=== PATIENT | male | born 1965 | race Caucasian/White ===

== ENCOUNTER → 2024-08-10 16:02 | Outpatient (REF) | payer OTHER, SELFPAY | LOC: RAD 16:02 | PROVIDERS: ATTENDING PHYSICIAN Family Medicine | DX: R91.8 Other nonspecific abnormal finding of lung field (principal) | CPT/HCPCS: 71270; Q9967 ==

== ENCOUNTER → 2024-09-06 10:03 | Outpatient (REF) | payer OTHER, SELFPAY | LOC: PET 10:03 | PROVIDERS: ATTENDING PHYSICIAN Family Medicine | DX: R91.1 Solitary pulmonary nodule (principal); R93.89 Abnormal findings on diagnostic imaging of other specified body structures | CPT/HCPCS: 78815; A9552 ==

== ENCOUNTER 2024-10-09 05:24 | Inpatient (IN) | payer OTHER, SELFPAY ==
[2024-10-08 22:14] VITALS: BP 121/86
[2024-10-08 22:31] LABS: % Basophils 0.8 % (0-2); % Eosinophils 3.1 % (0-6); % Immature Granulocytes 0.5 % (0-0.5); % Lymphocytes 17.2 % (20.5-51.1); % Monocytes 11.7 % (1.7-9.3); % Neutrophils 66.7 % (42.2-75.2); Absolute Basophils 0.1 10^3/uL (0-0.2); Absolute Eosinophils 0.3 10^3/uL (0-0.7); Absolute Lymphocytes 1.5 10^3/uL (1.2-3.4); Absolute Neutrophils 5.8 10^3/uL (1.4-6.5); Hematocrit 55.1 % (39.0-52.0); Mean Corp Hgb Conc. 34.5 g/dL (33.0-37.0); Mean Corpuscular Hgb 33.6 pg (27.0-31.0); Mean Corpuscular Volume 97.5 fL (80.0-94.0); Mean Platelet Volume 11.3 fL (7.4-10.4); Nucleated Red Blood Cells % 0.2 % (-); Platelet Count 177 10^3/uL (130-400); Red Blood Cell Count 5.65 10^6/uL (4.70-6.10); Red Cell Dist. Width 13.7 % (11.5-14.5); White Blood Cell Count 8.6 10^3/uL (4.8-10.8)
[2024-10-08 22:41] LABS: INR 1.25
[2024-10-08 22:45] LABS: ALT (SGPT) 105 U/L (0-50); AST (SGOT) 91 U/L (17-59); Albumin 3.8 g/dl (3.5-5.0); Alkaline Phosphatase 75 U/L (38-126); Blood Urea Nitrogen 34 mg/dl (9-20); Calcium 10.1 mg/dl (8.4-10.2); Carbon Dioxide 26 mmol/L (22-30); Chloride 102 mmol/L (98-107); Glucose 100 mg/dl (70-99); Potassium 4.8 mmol/L (3.5-5.1); Sodium 135 mmol/L (135-145); Total Bilirubin 1.7 mg/dl (0.2-1.3); Total Protein 5.8 g/dl (6.3-8.2); eGFR 49.94
[2024-10-08 22:57] LABS: NT-proBNP 3150 pg/ml; Troponin I < 0.012 ng/ml
[2024-10-08 23:19] VITALS: BP 112/81
[2024-10-08 23:52] VITALS: BMI 27.9
--- NOTE | 2024-10-08 23:58 | ED.GENMED ---
History of Present Illness
General
Chief Complaint: Breathing Problem
Source: patient
Exam Limitations: none
Time Seen by Provider: 10/08/24 23:44
Nursing documentation reviewed up to this point in time: agreed with except (Patient denies palpitations. No chest pain.)
History of Present Illness
History of Present Illness:
This is a 59-year-old gentleman with prior history of A-fib status post A-fib ablation July 2019.
He presents with 1 week history of progressive shortness of breath accompanied with generalized fatigue, has had diarrhea, generally 3-4 loose stools per day over the past week. He complains of abdominal bloating, early satiety, intermittent nausea
without vomiting. He denies fever nor chills, no cough, no chest pain or palpitations, no dizziness nor lightheadedness.
Due to fatigue, abdominal bloating, dyspnea on exertion who presented to urgent care and was sent to the ED for further evaluation.
No history of similar episodes in the past. No recent travel or recent antibiotic use.
No close contacts with similar symptoms.
No leg pain or swelling.
He states he did suffer pneumonia in June. He had CT of his chest in July that showed an upper lobe pulmonary nodule for which he underwent PET scan September 08 showing no FDG uptake as well as resolution of left upper lobe pulmonary nodule.
Mild uptake of nonenlarged mediastinal and hilar lymph nodes presumably inflammatory/reactive.
Past History
Past History
ED Past Medical History: Arrthythmia (Paroxysmal atrial fibrillation. A-fib ablation July 2019); Negative Asthma, HTN, Hypercholesterolemia or NIDDM
ED Past Surgical History: Cardiac (A-fib ablation July 2019) and Orthopedic
Social History
Tobacco: Non-smoker
Alcohol: Occasional
Personal:
Living: alone
Employment: Employed
Phy Exam
Physical Exam
Physical Exam:
GENERAL: 59-year-old gentleman appears his stated age, awake and alert, pleasant, appears in no acute distress.
EYE: pupils equal and reactive. anicteric
NECK: Supple, nontender, no meningismus, no significant adenopathy.
ENT: posterior pharynx is clear, oral mucosa is mildly dry. No rhinorrhea.
CARDIAC: Regular rate and rhythm. no murmur.
LUNGS: Clear breath sounds bilaterally, no acute respiratory distress, no wheezes/rales/rhonchi
ABDOMEN: Rotund, soft, nondistended, minimal generalized tenderness to the upper abdomen, no r/g, no cvat. normoactive BS.
NEUROLOGICAL: Alert and oriented x3, no focal neuro deficits. Gait is steady.
SKIN: Warm and dry, normal color, skin intact. No rash.
MUSCULOSKELETAL: No C/C/E. peripheral pulses are full and equal b/l. No palpable tenderness.
PSYCH: Normal and appropriate interaction.
Scores
Heart Failure Risk
Heart Failure Risk Score: Yes
History of Stroke or TIA: No
History of intubation for respiratory distress: No
Heart rate on ED arrival >/= 110: Yes
SaO2 <90% on arrival on room air: No
HR >/=110 during 3min walk test (or too ill to perform test): Yes
ECG has acute ischemic changes: No
Urea >/=12mmol/L (BUN 33.6mg/dL): Yes
Serum CO2>/=35mmol/L: No
Troponin I or T elevated to [place] Level (0.4mg/dL): No
NT-proBNP >/=5,000ng/L (5,000pg/ml): No
HF Risk Score: 3
Admission Status: HIGH RISK 15.9% Consider SNF treatment or admission to hospital
Course
Orders/Labs/Results
Orders:
Orders
10/08/24 22:08
EKG [Electrocardiogram (*1)] Urgent
Reason for Study: Shortness of Breath
EKG- Treatment ONCE
CR Chest - 2 Views Urgent
Comment:
Reason For Exam: SOB
10/08/24 22:25
Complete Blood Count/With Diff Urgent
Comprehensive Metabolic Panel Urgent
NT-proBNP Urgent
Prothrombin Time Urgent
TSH Reflex To Free T4 Urgent
Comment: ADD ON
Troponin I Urgent
10/08/24 23:56
Add On- LAB Urgent
Tests Added?: TSH reflex to free T-4
Stool Culture Urgent
CRISPIN Source: Feces/Stool
Specimen Description:
10/09/24 00:00
CT Abd/pel Without Iv Or Oral Urgent
Reason For Exam: gen abd pain, diarrhea x 1 week
10/09/24 00:08
Urinalysis Reflex To Culture Urgent
0.9% Sodium Chloride 1000 ml [Nss] 1,000 ml IV BOLUS
10/09/24 00:16
D-Dimer Urgent
10/09/24 01:10
CT Chest PE Study Urgent
Comment:
Reason For Exam: CRAIG, TACHYCARDIA, elevated D-dimer
10/09/24 02:32
Furosemide [Lasix] 40 mg IV NOW STA
Abnormal Lab Results
10/08/24 10/09/24
22:25 00:16
Hgb 19.0 H g/dL
(13.0-18.0)
Hct 55.1 H %
(39.0-52.0)
MCV 97.5 H fL
(80.0-94.0)
MCH 33.6 H pg
(27.0-31.0)
MPV 11.3 H fL
(7.4-10.4)
Absolute Monos (auto) 1.0 H 10^3/uL
(0.1-0.6)
Lymphocytes % 17.2 L %
(20.5-51.1)
Monocytes % 11.7 H %
(1.7-9.3)
PT 16.0 H Sec
(11.4-14.6)
D-Dimer 1.69 H ug/mlFEU
(0.00-0.50)
BUN 34 H mg/dl
(9-20)
Creatinine 1.6 H mg/dL
(0.7-1.3)
Glucose 100 H mg/dl
(70-99)
Total Bilirubin 1.7 H mg/dl
(0.2-1.3)
AST 91 H U/L
(17-59)
ALT 105 H U/L
(0-50)
Total Protein 5.8 L g/dl
(6.3-8.2)
10/08/24 22:25
10/08/24 22:25
Vital Signs
Initial and Last Documented VS:
Initial Vital Signs
Temp Pulse Resp BP Pulse Ox
98 F 119 18 121/86 99
10/08/24 22:14 10/08/24 22:14 10/08/24 22:14 10/08/24 22:14 10/08/24 22:14
Last Documented Vital Signs
Temp Pulse Resp BP Pulse Ox
98 F 101 20 108/81 97
10/08/24 22:14 10/09/24 01:27 10/09/24 01:27 10/09/24 01:27 10/09/24 01:27
MDM/Problems Addressed
Differential Diagnosis Includes:
Concern for CHF, gastroenteritis/enteritis/colitis.
Clinically patient appears somewhat dehydrated and he admits that he feels dry/dehydrated however reports several pound weight gain over the past week to week and a half.
Chest x-ray shows mild cardiomegaly however no evidence of CHF.
EKG Shows sinus tachycardia at 115 with unifocal PVCs.
Labs are remarkable for mildly elevated LFTs, moderately elevated BNP 3000, elevated creatinine of 1.6, elevated BUN 34.
Troponin is normal.
Will check TSH.
Potential risk factor for thromboembolism as patient flew to and from [place], returning last week.
As patient clinically appears dehydrated, will initiate IV fluids. Will check TSH will check D-dimer. Will check dry skin of the abdomen and pelvis due to abdominal bloating, diarrhea, discomfort.
If D-dimer elevated will consider CT of the chest/PE study.
Chronic conditions affecting care: Arrhythmia (Remote history of A-fib.)
*Radiology
Radiology exam reviewed: radiology read reviewed
*Pulse Oximetry
Patient hypoxic: no
*EKG
Interpreted by ED Provider?: Yes
Interpretation: abnormal
Comparison EKG: changes noted
Rate: tachycardiac
Rhythm: sinus and PVC's
[place]: normal axis
QRS Pattern: right bundle branch block
Ischemia: non-specific ST changes
*Punch Out Crew Member Interpretation
Rate: tachycardiac
Interpretation: abnormal
Rhythm: sinus
*Critical Care Note
Total Time (30-74mins, 75-104mins- exclusive of procedures): Not Applicable
Update Note
Update Note:
02:35
CT abdomen pelvis shows generalized perinephric, periureteral and retroperitoneal stranding without hydronephrosis nor ureteral stones. Nonspecific. Urinalysis is pending but patient has had no UTI symptoms.
Diffuse gallbladder wall thickening with haziness near the gallbladder neck, could be related to acute cholecystitis versus secondary to volume overload. Patient continues to have no significant right upper quadrant tenderness to palpation.
D-dimer elevated thus CT of the chest/PE study obtained which shows no PE. Moderate cardiomegaly. Elevated right heart pressure and mild coronary calcifications. Trace pericardial fluid.
There is mild interlobar septal thickening and slight groundglass opacities primarily in the lower lungs suggesting mild pulmonary edema and trace left pleural effusion.
I suspect dyspnea on exertion, resting tachycardia is mild pulmonary edema in nature. Will give an IV dose of Lasix and will admit to hospitalist service.
ED Attending Note
-
Portions of this chart may have been created with voice recognition software.� Occasional wrong word or��sound alike� substitutions may have occurred due to the inherent limitations of voice recognition software.
Discharge Plan
Departure
Patient Disposition: Admit
Date of Disposition: 10/09/24
Time of Disposition: 02:39
Admit to: Telemetry
Admit to doctor: Meek
Presentation/result/management discussed w/ accepting MD/DO: Hospitalist
Condition: Fair
Discharge Problem:
Acute CHF
Prescriptions:
No Action
B Complex
1 tab PO DAILY
Multi-Vitamins
1 tab PO DAILY
Vitamin D3
5,000 mg PO DAILY
creatine monohydrate
7 mg PO DAILY
Referrals:
Donald Ferrer DO [Family Provider] -
Interventions
Interventions:
*Risk Screen - Suicide Last Done: 10/08/24 22:14
*General Assessment Last Done: 10/08/24 22:14
*Neglect/Abuse Screening Last Done: 10/08/24 22:14
*ED- Fall Risk Assessment Last Done: 10/08/24 23:52
*ED COVID-19 Vaccine History Last Done: 10/08/24 23:56
ED- Cardiac Assessment Last Done: 10/08/24 23:52
ED- Pulmonary Assessment Last Done: 10/08/24 23:52
Discharge Date and Time
Print Language: LAO
[2024-10-09] VITALS (13 sets, daily range): BP systolic 104–131; BP diastolic 71–87; BMI 27.4
[2024-10-09] MEDS: NSS 1000 IV (00:15)
[2024-10-09 00:51] LABS: D-Dimer 1.69 ug/mlFEU (0.00-0.50)
[2024-10-09] MEDS: LASIX 40 MG IV ×2 (02:47→10:28)
[2024-10-09 02:56] LABS: TSH Reflex To Free T4 2.73 uIU/ml (0.47-4.68)
[2024-10-09 03:12] LABS: Urine Albumin 2+ (Neg - Trace); Urine Bilirubin Negative (Negative); Urine Character Clear (Clear); Urine Color Yellow; Urine Glucose Negative (Negative); Urine Ketone 1+ (Negative); Urine Leukocyte Negative (Negative); Urine Nitrite Negative (Negative); Urine Occult Blood Negative (Negative); Urine Urobilinogen Negative (Neg - 1+)
[2024-10-09 03:28] LABS: Urine Red Blood Cell None Seen /HPF (0-2); Urine Squamous Cell None seen /LPF (Few); Urine White Cell 0-2 /HPF (0-5)
--- NOTE | 2024-10-09 04:29 | HPS.HSE ---
Family Physician
-
Family Physician: Donald Ferrer
Chief Complaint
-
SOB
History of Present Illness
Patient is a 59y M with PMH significant for A-Fib s/p ablation who presents to ED complaining of SOB. Patient states that he has felt progressively more SOB for the past several days. He reports dyspnea initially with exertion - but also with
lying flat / trying to sleep. He denies any chest pain / palpitations. He reports feeling very 'bloated' and full in the abdomen. No LE edema. No cough, fevers / chills, etc. He has been nauseated here in the ED, but no emesis. He states that
he has had loose stools x several days - about 3 loose BM per day x 3 days. No known sick contacts.
Medical History
Past Medical History
Past Medical History: Reports Other
Additional Past Medical History:
Atrial Fibrillation
Past Surgical History: Reports Other
Additional Past Surgical History:
PVI Ablation
Left TSA
Bilateral TKA
Social History
Tobacco: Non-smoker
Alcohol: Occasional
Drug: None
Family History
Family History: Other (MGM / MGF: CAD )
Allergies / Home Medications
Allergies reflects when Allergies were last updated in [facility].
Home Medications with original date entered in [facility]
Allergy/Medication List:
Allergies
Allergy/AdvReac Type Severity Reaction Status Date / Time
No Known Allergies Allergy Verified 08/25/19 12:06
Home Medications
B Complex 1 tab PO DAILY 10/08/24
Multi-Vitamins 1 tab PO DAILY 10/08/24
Vitamin D3 5,000 mg PO DAILY 10/08/24
creatine monohydrate 7 mg PO DAILY 10/08/24
Review of Systems
-
History Source: Patient
A 12 point ROS was completed and negative except as noted: Yes
Constitutional: Reports Fatigue; Denies Fever or Chills
Respiratory: Reports Trouble Breathing; Denies Cough
Cardiac: Denies Chest Pain or Palpitations
Abdomen/GI: Reports Nausea and Diarrhea; Denies Abdominal Pain, Vomiting, Bloody Stools or Black Stools
: Denies Dysuria, Frequency or Flank Pain
Musculoskeletal: Denies Joint Pain or Edema
Neurological: Denies Dizzy or Headache
Psych: Denies Depression or Anxiety
Physical Exam
Vital Signs
Vital Signs
Temp Pulse Resp BP Pulse Ox
98 F 107 20 114/87 97
10/08/24 22:14 10/09/24 03:31 10/09/24 03:31 10/09/24 03:31 10/09/24 01:27
Physical Exam
General: Other (59y M in no distress.)
HEENT: Moist mucous membranes, PERRLA and Other (No JVD.)
Respiratory: Other (Few, fine rales at the bases. Otherwise clear.)
Cardiac: S1/S2 and Tachycardia; No Murmur
GI: Soft, Non Tender, Non Distended and Normal Bowel Sounds
Musculoskeletal: No Clubbing, No Cyanosis and No Edema
Neuro: AO x 3
Laboratory Results
-
10/08/24 22:25
10/08/24 22:25
Laboratory Results
PT 16.0 Sec (11.4-14.6) H 10/08/24 22:25
INR 1.25 10/08/24 22:25
Total Bilirubin 1.7 mg/dl (0.2-1.3) H 10/08/24 22:25
AST 91 U/L (17-59) H 10/08/24 22:25
ALT 105 U/L (0-50) H 10/08/24 22:25
Alkaline Phosphatase 75 U/L (38-126) 10/08/24 22:25
Troponin I < 0.012 ng/ml 10/08/24 22:25
Impression/Plan
-
A/P: Patient is a 59y M with PMH significant for A-Fib s/p ablation who presents to ED complaining of several days of SOB.
Acute HF - Unknown Type
- Admit for further evaluation and treatment.
- Patient with exertional dyspnea and orthopnea x several days.
- Imaging in the ED shows mild pulmonary edema, RV overload. No PE.
- BNP > 3k with no prior for comparison.
- Lasix IV daily and follow for effect.
- Check Echo.
- Cardiology evaluation for additional recommendations.
- Patient notes that he takes creatine supplement for work-outs. Outpatient records report testosterone supplementation as well.
MAEVE v CKD
- SCr = 1.6. Most recent baseline was 0.9 (2019).
- Recent GI losses from diarrhea x several days - but imaging / other history suggests volume overload.
- IV Lasix for now as noted above.
- Follow for changes in renal function with diuresis.
Abnormal LFTs
Diarrhea
- LFT abnormality seems likely due to hepatic congestion / R CHF.
- With nausea / diarrhea - ? coincident enteritis.
- Check abd US for further evaluation (GB wall thickening vs edema on CT report).
- Supportive care / antiemetics.
- Follow for clinical changes.
Polycythemia
- Chronic / essentially unchanged x years.
- Seems likely due to testosterone supplementation.
- ASA daily for now.
- Check iron studies. Follow for any changes.
DVT Prophylaxis: Subcut Heparin
Code Status: Full
--- NOTE | 2024-10-09 06:29 | PTCARENOTE ---
Pt admitted to rm [id number] from ED. Ambulated to bed from stretcher. Pleasant, cooperative, VSS. Tele box #7 in place - appears SR with 1st degree and BBB. Pt reported loose stools x 3 in last 24 hours, stool cultures already ordered. Public Area Supervisor made
aware. Pt oriented on POC and to call vaca/room, verbalized understanding of all instructions.
[2024-10-09 06:34] LABS: Hematocrit 51.5 % (39.0-52.0); Hemoglobin 18.5 g/dL (13.0-18.0); Mean Corp Hgb Conc. 35.9 g/dL (33.0-37.0); Mean Corpuscular Hgb 34.3 pg (27.0-31.0); Mean Corpuscular Volume 95.4 fL (80.0-94.0); Platelet Count 174 10^3/uL (130-400); Red Cell Dist. Width 13.5 % (11.5-14.5); White Blood Cell Count 8.2 10^3/uL (4.8-10.8)
[2024-10-09 06:58] LABS: ALT (SGPT) 109 U/L (0-50); AST (SGOT) 93 U/L (17-59); Albumin 3.6 g/dl (3.5-5.0); Alkaline Phosphatase 73 U/L (38-126); Blood Urea Nitrogen 26 mg/dl (9-20); Calcium 9.5 mg/dl (8.4-10.2); Carbon Dioxide 20 mmol/L (22-30); Chloride 106 mmol/L (98-107); Direct Bilirubin 0.3 mg/dl (0.0-0.4); Estimated Creatinine Clearance 75 ml/min; Glucose 84 mg/dl (70-99); HDL Cholesterol 41 mg/dl; Iron 83 ug/dl (49-181); LDL Cholesterol, Calculated 77 mg/dl; Potassium 4.3 mmol/L (3.5-5.1); Sodium 136 mmol/L (135-145); Total Cholesterol 134 mg/dl (50-199); Total Protein 5.6 g/dl (6.3-8.2); Triglyceride 80 mg/dl (10-149); Very Low Density Lipoprotein 16 mg/dl (0-30); eGFR > 60.00
[2024-10-09 07:01] LABS: Troponin I 0.129 ng/ml
[2024-10-09 07:20] LABS: Glucose - Point of Care 85 mg/dl (70-99)
--- NOTE | 2024-10-09 08:03 | CON.CAR ---
Addendum entered and electronically signed by Haris Valencia MD 10/09/24 15:38:
I saw and examined the patient.
The INSTRUCTIONAL SUPPORT SPECIALIST's note was reviewed and I agree with the note.
Comment:
Avel Kerns is a 59-year-old man with paroxysmal Afib s/p PVI 08/17/2019, who presents to the ER with c/o SOB for a few weeks, worsening over the last several days. He notes that he had pneumonia and the flu back in June and since then has felt
deconditioned with dyspnea on exertion. Yesterday he tried to climb a flight of steps and was dyspneic even with this so decided to come to the ER. He also notes recent weight gain, abdominal distention and orthopnea. No chest pain or lower
extremity edema. He received Lasix in the ER and felt improved. He denies a history of hypertension, hyperlipidemia, diabetes, smoking, family history of early coronary artery disease.
Physical exam notable for well-appearing man with regular rate and rhythm, no murmurs, no lower extremity edema, clear lungs bilaterally. Labs notable for creatinine 1.6 -> 1.3, troponin <0.012 -> 0.129 -> 0.298, total cholesterol 134, LDL 77,
proBNP 3150. ECG shows sinus tachycardia with fusion complexes every other beat and nonspecific ST�T wave changes in the lateral leads. ADRIAN in 2019 with normal BiV size and function and no significant valvular disease.
Shortness of breath
-Differential diagnosis includes volume overload from HF versus NSTEMI. He may have NSTEMI leading to heart failure.
-Continue diuresis with 40 IV Lasix daily
-Treatment for possible NSTEMI as below
-Echocardiogram on Friday
Troponin elevation
-Elevated troponin in the setting of shortness of breath. Currently asymptomatic. Could be due to nonishchemic due to CHF exacerbation and MAEVE but troponin uptrending which fits more with NSTEMI.
-If next troponin rises again, start heparin infusion and give 243mg ASA to get to 325mg
-ASA 81 mg daily
-Trend troponin/ECG to peak
-Possible [facility] Friday depending on Troponin trend and echo
MAEVE
-Possibly due to CHF exacerbation. Improving with diuresis.
-Continue to trend.
Paroxysmal atrial fibrillation
-Currently in sinus rhythm
-Has not been on anticoagulation since his ablation in 2019
-[id number] 0 (may be 1 for HF pending echo)
PVCs, asymptomatic
-Normal electrolytes
-Check echo as above
Original Note:
Consultation
Consultation Request
Date/Time Consultation Requested: 10/09/24 5:45a
Date/Time Consultation Performed: 10/09/24 7:45a
Requesting Provider: Dr. Eden
Performing Provider: VIOLET Valadez for Dr. Valencia
Reason for Consultation: CHF
Medical History
-
Chief Complaint: sob
History of Present Illness:
Mr. Kerns is a 59 yo male with paroxysmal Afib s/p PVI 08/17/2019, who presents to the ER with c/o SOB for 2 weeks, worsening over the last several days. SOB is worse with exertion up the stairs and when lying down. He admits to abdominal bloating for
2 weeks as well. He is admitted to hospitalist service and we are consulted for CHF (presumed HFpEF as ADRIAN 06/2019 with EF 60%), proBNP 3150, initial troponin < 0.012, then 0.129, trending. EKG w/o acute ischemia, new PVCs/bigeminy. Chest CT showed
no CTA evidence for an acute PE, cardiomegaly with reflux of contrast from the right atrium into the IVC and hepatic veins indicating a degree of right heart failure, small patchy opacity in the LLL costophrenic sulcus, likely atelectasis or mild
pneumonitis. He reports feeling better since IV Lasix.
Past Medical History
Past Medical History: Arrhythmias (Afib)
Past Surgical History: Cardiac (PVI 07/2019) and Orthopedic (b/l TKA)
Social History
Tobacco: Non-Smoker
Alcohol: Occasional
Living: With Family
Family History
Family History: Reviewed & Not Pertinent
Allergies / Home Medications
Allergy/AdvReac Type Severity Reaction Status Date / Time
No Known Allergies Allergy Verified 08/25/19 12:06
�Medication �Instructions �Recorded �Confirmed �Type
B Complex 1 tab PO DAILY 10/08/24 10/09/24 History
Multi-Vitamins 1 tab PO DAILY 10/08/24 10/09/24 History
Vitamin D3 5,000 mg PO DAILY 10/08/24 10/09/24 History
creatine monohydrate 7 mg PO DAILY 10/08/24 10/09/24 History
Review of Systems
-
History Source: Patient
All other systems: Negative unless noted
Physical Exam
Vital Signs
Temp Pulse Resp BP Pulse Ox
97.5 F 100 16 129/86 98
10/09/24 07:30 10/09/24 07:30 10/09/24 07:30 10/09/24 07:30 10/09/24 07:30
Lab Results
10/09/24 06:12
10/09/24 06:12
Troponin I 0.129 ng/ml H* D 10/09/24 06:12
Seg-T-Phvxvvhvgpo Pept 3150 pg/ml 10/08/24 22:25
Physical Exam
General: Well Developed, Well Nourished and No Apparent Distress
HEENT: Normocephalic, Anicteric and Moist Mucous Membranes
Respiratory: Clear and Non Labored Respirations
Cardiac: S1/S2 and Regular Rhythm (occasional PVCs)
Breast: Deferred by me
GI: Soft, Non Tender and Normal Bowel Sounds
Rectal: Deferred by Provider
Genito-urinary: No Costovertebral Tender
Musculoskeletal: No Clubbing, No Cyanosis and No Edema
Skin: Warm and Dry
Neuro: AO x 3
Psych: Calm
Impression / Plan
-
SOB - subacute occurring for 2 weeks, worse the last few days.
- history of normal EF 60% 06/2019 on ADRIAN.
- check echo.
- agree with diuresis and monitor.
Abnormal troponin - setting of MAEVE, acute heart failure.
- initial < 0.012 then 0.129, trend troponin.
- EKG sinus tach with fusion complexes, PVCs/bigeminy, T wave inversions noted.
- denies chest pain or SOB currently.
Afib - paroxysmal.
- s/p PVI 07/2019.
- ATI4YR6 VASc score 0, no OAC.
PVCs - new.
- bigeminy on tele.
- monitor on tele, consider BB.
Data Reviewed
-
EKG: Tracing Personally Visualized and interpreted (sinus tachycardia with fusion complexes 115 bpm, RBBB)
CT Scan: Report Reviewed by me (chest CT: No CTA evidence for an acute PE, cardiomegaly with reflux of contrast from the right atrium into the IVC and hepatic veins indicating a degree of right heart failure, small patchy opacity in the LLL
costophrenic sulcus, likely atelectasis or mild pneumonitis)
Labs: Labs Reviewed by me (outpatient CT coronary calcium score 12/2019 was 0.)
Old Records: Reviewed
--- NOTE | 2024-10-09 10:23 | W.PN.HOSP.TC ---
Addendum entered and electronically signed by Carmina Anna MD 10/09/24 12:58:
abdominal US results reviewed
patient without significant abdominal pain to suggest acalculous cholecystitis
will monitor with diuresis
Original Note:
Today's Communication/Plan
-
diuresis
TTE
Cardiology consult
Assessment / Plan
Assessment / Plan
Mr. Avel Kerns is a 59y M with PMH significant for A-Fib s/p ablation who presents to ED complaining of several days of SOB, admitted for new heart failure exacerbation.
Chest CT
IMPRESSION:
No CTA evidence for an acute pulmonary thromboembolism.
Cardiomegaly with reflux of contrast from the right atrium into the IVC and hepatic veins indicating a degree of right heart failure.
Small patchy opacity in the left lower lobe costophrenic sulcus, likely atelectasis or mild pneumonitis.
Mild mediastinal and bilateral hilar lymphadenopathy, nonspecific.
Abdomen/Pelvis CT
IMPRESSION:
Bilateral perinephric fat stranding, nonspecific but could be secondary to an ascending urinary tract infection. Recommend correlation with a urinalysis. No CT evidence for hydronephrosis or nephroureterolithiasis.
Gallbladder wall thickening with minor fat stranding. An abdominal ultrasound has been ordered, at which time this can be assessed further.
Acute HF - Unknown Type
- admitted to telemetry
- Lasix 40mg IV QD, improvement in symptoms overnight
- Check Echo.
- Cardiology consult
- Patient notes that he takes creatine supplement for work-outs. Outpatient records report testosterone supplementation as well.
MAEVE
- SCr = 1.6. Most recent baseline was 0.9 (2019).
- creatinine improved to 1.3 this AM
Non-ischemic Myocardial Injury
-elevated Troponin likely related to heart failure
-trend Troponion
-F/U further cardiology recommendations
-TTE
Abnormal LFTs
Diarrhea
- LFT abnormality seems likely due to hepatic congestion / R CHF.
- CT with mild gallbladder wall thickening; follow up abdominal US results
Polycythemia
- Chronic / essentially unchanged x years.
- Seems likely due to testosterone supplementation.
- ASA daily for now.
- Check iron studies.
DVT Prophylaxis: Subcut Heparin
Code Status: Full
Anticipated Discharge: 24 - 48 hours
Subjective/Interval History
-
Date of Service: October 09, 2024
urinated post Lasix given in ER with improvement in bloating and shortness of breath
Objective Data
-
Labs:
Laboratory Results
10/08/24 10/09/24
22:25 06:12
WBC 8.6 8.2
Hgb 19.0 H 18.5 H
Hct 55.1 H 51.5
Plt Count 177 174
PT 16.0 H
INR 1.25
Sodium 135 136
Potassium 4.8 4.3
Chloride 102 106
Carbon Dioxide 26 20 L
BUN 34 H 26 H
Creatinine 1.6 H 1.3
Glucose 100 H 84
Calcium 10.1 9.5
Total Bilirubin 1.7 H 2.0 H
AST 91 H 93 H
ALT 105 H 109 H
Alkaline Phosphatase 75 73
Vital Signs:
Vital Signs
Temp Pulse Resp BP Pulse Ox
97.5 F 100 16 129/86 98
10/09/24 07:30 10/09/24 07:30 10/09/24 07:30 10/09/24 07:30 10/09/24 07:30
I&O
10/08/24 10/09/24 10/10/24
06:59 06:59 06:59
Intake Total 1000 / 1000
Output Total 2200 / 2200
Balance -1200 / -1200
Review of Systems
-
History Source: Patient
All other systems: Reviewed and negative
Physical Exam
-
General: No Apparent Distress
HEENT: PERRLA
Respiratory: Clear to Auscultation; Negative Wheezes
Cardiac: Regular Rhythm and S1/S2
GI: Other (mildly distended and tender )
Musculoskeletal: No Edema
Skin: Warm and Dry; Negative Rash
Neuro: AO x 3
Psych: Calm
Data Reviewed
-
Diagnostic Radiology: Report Reviewed by me
Labs: Labs Reviewed by me
[2024-10-09] MEDS: HEPARIN 5000 UNITS SC ×3 (10:27→23:29)
[2024-10-09] MEDS: LOW STRENGTH ASPIRIN 81 MG PO (10:28)
[2024-10-09 11:39] LABS: Glucose - Point of Care 81 mg/dl (70-99)
[2024-10-09 12:39] LABS: Troponin I 0.298 ng/ml
[2024-10-09 16:44] LABS: Glucose - Point of Care 113 mg/dl (70-99)
[2024-10-09 20:19] LABS: Troponin I 0.287 ng/ml
[2024-10-09 21:35] LABS: Glucose - Point of Care 124 mg/dl (70-99)
[2024-10-10] VITALS (7 sets, daily range): BP systolic 94–118; BP diastolic 70–86; PULSE 100–107; BMI 27.2
[2024-10-10 07:18] LABS: Blood Urea Nitrogen 25 mg/dl (9-20); Calcium 9.4 mg/dl (8.4-10.2); Carbon Dioxide 24 mmol/L (22-30); Chloride 105 mmol/L (98-107); Estimated Creatinine Clearance 81 ml/min; Glucose 91 mg/dl (70-99); Magnesium 1.7 mg/dl (1.6-2.3); Potassium 3.8 mmol/L (3.5-5.1); Sodium 137 mmol/L (135-145); eGFR > 60.00
[2024-10-10 07:37] LABS: Troponin I 0.344 ng/ml
--- NOTE | 2024-10-10 10:01 | W.PN.HOSP.TC ---
Today's Communication/Plan
-
full dose aspirin/ start heparin gtt
appreciate Cardiology
IV diuresis
TTE tomorrow and will make NPO after MN
Assessment / Plan
Assessment / Plan
Mr. Avel Kerns is a 59y M with PMH significant for A-Fib s/p ablation who presents to ED complaining of several days of SOB, admitted for new heart failure exacerbation.
Chest CT
IMPRESSION:
No CTA evidence for an acute pulmonary thromboembolism.
Cardiomegaly with reflux of contrast from the right atrium into the IVC and hepatic veins indicating a degree of right heart failure.
Small patchy opacity in the left lower lobe costophrenic sulcus, likely atelectasis or mild pneumonitis.
Mild mediastinal and bilateral hilar lymphadenopathy, nonspecific.
Abdomen/Pelvis CT
IMPRESSION:
Bilateral perinephric fat stranding, nonspecific but could be secondary to an ascending urinary tract infection. Recommend correlation with a urinalysis. No CT evidence for hydronephrosis or nephroureterolithiasis.
Gallbladder wall thickening with minor fat stranding. An abdominal ultrasound has been ordered, at which time this can be assessed further.
Abdominal US
IMPRESSION:
Diffuse gallbladder wall thickening measuring up to 7 mm in thickness. No evidence for cholelithiasis. Secondary gallbladder wall thickening from congestive heart failure would be a consideration given the CT chest findings. Acalculus cholecystitis
is probably less likely but clinical correlation is recommended. Negative sonographic 's sign.
No bile duct dilatation.
Acute HF - Unknown Type
- admitted to telemetry
- Lasix 40mg IV QD, improvement in symptoms initially post admission. This morning patient states he remains bloated
- TTE ordered
- Cardiology consult appreciated, may need high dose lasix?
MAEVE
- SCr = 1.6. Most recent baseline was 0.9 (2019).
- creatinine improved/stable with diuresis (1.2 this morning)
- Patient notes that he takes creatine supplement for work-outs. Outpatient records report testosterone supplementation as well.
Troponin Elevation
-patient without chest pain yesterday; initially clinical picture more consistent with non-ischemic myocardial troponin elevation; patient with increased Trop this morning and report of chest 'fullness'. Discussed with Caridology and will give
higher dose aspirin, start IV Heparin gtt
-F/U further Cardiology recommendations
Abnormal LFTs
Diarrhea
- LFT abnormality seems likely due to hepatic congestion / R CHF.
- CT with mild gallbladder wall thickening; seen on US; no evidence of cholelithiasis. *patient was eating and drinking without pain yesterday. He has no fever or risk factors for acalculous cholecystitis and findings can be explained by heart
failure
Bilateral perinephric stranding seen on CT - UA without evidence of infection; patient without flank pain
Polycythemia
- Chronic / essentially unchanged x years.
- Seems likely due to testosterone supplementation.
- ASA daily for now.
constipation
-one of main symptoms is bloating in setting of fluid, but now reports constipation may be confusing picture
-will order miralax and monitor
DVT Prophylaxis: start heparin gtt
Code Status: Full
51 minutes spent on patient care
Anticipated Discharge: 24 - 48 hours
Subjective/Interval History
-
Date of Service: October 10, 2024
feels more tired today
continues to feel bloated in abdomen, states he didn't urinate significantly yesterday although there is weight loss
he was eating and drinking well yesterday without pain
this morning he notes 'fullness' in chest
Objective Data
-
Labs:
Laboratory Results
10/10/24 10/10/24
06:15 09:48
WBC Pending
Hgb Pending
Hct Pending
Plt Count Pending
APTT Pending
Sodium 137
Potassium 3.8
Chloride 105
Carbon Dioxide 24
BUN 25 H
Creatinine 1.2
Glucose 91
Calcium 9.4
Vital Signs:
Vital Signs
Temp Pulse Resp BP Pulse Ox
97.5 F 106 18 107/77 99
10/10/24 03:00 10/10/24 08:50 10/10/24 08:50 10/10/24 08:50 10/10/24 08:50
I&O
10/09/24 10/10/24 10/11/24
06:59 06:59 06:59
Intake Total 1000 / 1000 1800 / 1800
Output Total 2200 / 2200
Balance -1200 / -1200 1800 / 1800
Review of Systems
-
History Source: Patient
All other systems: Reviewed and negative
Physical Exam
-
General: No Apparent Distress
HEENT: PERRLA
Respiratory: Clear to Auscultation; Negative Wheezes
Cardiac: Regular Rhythm and S1/S2
GI: Other (mild tenderness epigastric region )
Musculoskeletal: No Edema
Skin: Warm and Dry; Negative Rash
Neuro: AO x 3
Psych: Calm
Data Reviewed
-
Labs: Labs Reviewed by me
[2024-10-10 10:14] LABS: Hematocrit 53.4 % (39.0-52.0); Hemoglobin 18.5 g/dL (13.0-18.0); Mean Corp Hgb Conc. 34.6 g/dL (33.0-37.0); Mean Corpuscular Volume 98.2 fL (80.0-94.0); Mean Platelet Volume 11.8 fL (7.4-10.4); Platelet Count 176 10^3/uL (130-400); Red Blood Cell Count 5.44 10^6/uL (4.70-6.10); Red Cell Dist. Width 13.9 % (11.5-14.5); White Blood Cell Count 8.3 10^3/uL (4.8-10.8)
[2024-10-10 10:23] LABS: APTT 28.7 Sec (23.4-35.0)
[2024-10-10] MEDS: LOW STRENGTH ASPIRIN 243 MG PO (10:24)
[2024-10-10] MEDS: LASIX IV (10:25)
[2024-10-10] MEDS: LOW STRENGTH ASPIRIN 81 MG PO (10:25)
[2024-10-10] MEDS: MIRALAX 17 GRAMS PO (10:31)
[2024-10-10] MEDS: MAG-TAB SR 84 MG PO (10:31)
[2024-10-10 10:42] LABS: ALT (SGPT) 98 U/L (0-50); AST (SGOT) 70 U/L (17-59); Alkaline Phosphatase 73 U/L (38-126)
[2024-10-10] MEDS: HEPARIN 4000 UNITS IV (10:56)
[2024-10-10] MEDS: HEPARIN 25000 UNITS/250 ML IV (10:57)
[2024-10-10] MEDS: HEPARIN SC (11:30)
[2024-10-10 12:05] LABS: Troponin I 0.296 ng/ml
--- NOTE | 2024-10-10 15:34 | W.PN.CD ---
Today's Communication / Plan
-
Aspirin and heparin for possible ACS
Start low-dose beta-roman
Diuresis
Echo and LHC tomorrow. N.p.o. past midnight.
Impression / Plan
-
Shortness of breath
-Differential diagnosis includes volume overload from HF versus NSTEMI or both
-Diuresis with 60 mg IV Lasix today. He did not feel that he responded well to 40 mg yesterday.
-Treatment for possible NSTEMI as below
-Echocardiogram on Friday
Troponin elevation, concerning for NSTEMI
-This diagnosis is a threat to life
-Elevated troponin in the setting of shortness of breath. Currently asymptomatic. Could be due to nonischemic injury in the setting of CHF/MAEVE but troponin uptrending which fits more with NSTEMI.
-Continue IV heparin which requires frequent lab monitoring
-Status post aspirin 325mg. ASA 81 mg daily
-Start BB. LDL 77. No statin for now.
-LHC and echo Friday
MAEVE
-Possibly due to CHF exacerbation. Resolved with diuresis.
-Continue to trend.
Paroxysmal atrial fibrillation
-Currently in sinus rhythm
-Has not been on anticoagulation since his ablation in 2019
-[id number] 0 (may be 1 for HF pending echo)
PVCs, asymptomatic
-Normal electrolytes
-Check echo as above
Subjective: Feels chest 'fullness 'today. Lasix held this morning due to low BPs.
Physical Exam
Vital Signs/Labs
Vital Signs
Temp Pulse Resp BP Pulse Ox
97.4 F 111 16 111/80 99
10/10/24 11:30 10/10/24 11:30 10/10/24 11:30 10/10/24 11:30 10/10/24 11:30
10/09/24 10/10/24 10/11/24
06:59 06:59 06:59
Actual Weight 219 lb 3.2 oz 217 lb 8 oz
10/10/24 10:05
10/10/24 06:15
PT 16.0 Sec (11.4-14.6) H 10/08/24 22:25
INR 1.25 10/08/24 22:25
APTT 28.7 Sec (23.4-35.0) 10/10/24 10:05
Magnesium 1.7 mg/dl (1.6-2.3) 10/10/24 06:15
Triglycerides 80 mg/dl (10-149) 10/09/24 06:12
LDL Cholesterol, Calc 77 mg/dl 10/09/24 06:12
VLDL Cholesterol, Calc 16 mg/dl (0-30) 10/09/24 06:12
HDL Cholesterol 41 mg/dl 10/09/24 06:12
10/08/24
22:25
Ptt-H-Xjdoixqihqz Pept 3150
LAB Results
10/08/24 10/09/24 10/09/24
22:25 06:12 11:52
Troponin I < 0.012 0.129 H* D 0.298 H* D
10/09/24 10/10/24 10/10/24
19:48 06:15 11:34
Troponin I 0.287 H* 0.344 H* 0.296 H*
10/10/24
18:00
Troponin I Cancelled
Physical Exam
Constitutional: No acute distress and Comfortable
Cardiovascular: Rhythm & rate is regular, Pedal edema is absent, S1S2 is normal and Murmur/rub/gallop absent
Respiratory: Respiratory effort normal and Lungs clear to auscul.
Neuro/Psych: AO x 3
Data Reviewed
-
Date of Service: October 10, 2024
Medical Decision Making: Reviewed Test Results, Independent Historian Assessment, Test Interpretation and Review of Case with other Provider
EKG: Tracing Personally Visualized and interpreted
X-Ray/CT/US/MRI/NUC/PET: Report Reviewed by me
Labs: Labs Reviewed by me
[2024-10-10] MEDS: LASIX 60 MG IV (16:00)
[2024-10-10 18:11] LABS: APTT 88.3 Sec (23.4-35.0)
[2024-10-10] MEDS: LOPRESSOR 12.5 MG PO (20:28)
[2024-10-10] MEDS: ATIVAN 1 MG PO (21:49)
[2024-10-11] VITALS (18 sets, daily range): BP systolic 90–117; BP diastolic 47–94; BMI 27.1
[2024-10-11] MEDS: MYLICON 80 MG PO ×2 (00:30→23:59)
[2024-10-11 01:41] LABS: APTT 87.9 Sec (23.4-35.0)
[2024-10-11] MEDS: HEPARIN 25000 UNITS/250 ML IV (04:31)
--- NOTE | 2024-10-11 07:37 | W.PN.CD ---
Today's Communication / Plan
-
Echo.
Cath.
Assess filling pressures at cath.
Filling pressure based diuresis.
Impression / Plan
-
Impression/Plan: 59 y/o male with PAF s/p ablation admitted with progressive SOB/CRAIG responsive to diuresis and an elevated troponin concerning for HF + NSTEMI.
#Shortness of breath
-Acute (past two weeks).
-Differential diagnosis includes volume overload from HF versus NSTEMI or both.
-Minimal weight loss with furosemide 60 mg IV yesterday. We will assess filling pressures at cath and direct diuresis accordingly.
-Treatment for possible NSTEMI as below.
-Echocardiogram today.
#Troponin elevation, concerning for NSTEMI
-Acute. This diagnosis is a threat to life.
-Elevated troponin in the setting of shortness of breath. Currently asymptomatic. Could be due to nonischemic injury in the setting of CHF/MAEVE but troponin trend fits more with NSTEMI.
-Troponin peaked at 0.344.
-Continue IV heparin which requires frequent lab monitoring.
-Continue ASA 81, metoprolol.
-LDL 77. No statin for now.
-LHC and echo today.
#MAEVE
-Resolved.
#Paroxysmal atrial fibrillation
-Currently in sinus rhythm
-Rate/rhythm control with metoprolol.
-[id number] 0 (may be 1 for HF pending echo)
-Has not been on anticoagulation since his ablation in 2019.
#PVCs, asymptomatic
-Normal electrolytes.
-Check echo as above.
Subjective/Interval History:
Weight stable from yesterday, but down nearly 3 kg from admission.
HR 80-110.
SBP 94-139.
SaO2 98% on 2LNC.
CXR reviewed.
DATA:
CTPE, 10/09/2024:
IMPRESSION:
No CTA evidence for an acute pulmonary thromboembolism.
Cardiomegaly with reflux of contrast from the right atrium into the IVC and hepatic veins indicating a degree of right heart failure.
Small patchy opacity in the left lower lobe costophrenic sulcus, likely atelectasis or mild pneumonitis.
Mild mediastinal and bilateral hilar lymphadenopathy, nonspecific.
AUS, 10/09/2024:
IMPRESSION:
Diffuse gallbladder wall thickening measuring up to 7 mm in thickness. No evidence for cholelithiasis. Secondary gallbladder wall thickening from congestive heart failure would be a consideration given the CT chest findings. Acalculus cholecystitis
is probably less likely but clinical correlation is recommended. Negative sonographic 's sign.
No bile duct dilatation.
Physical Exam
Vital Signs/Labs
Vital Signs
Temp Pulse Resp BP Pulse Ox
36.4 C 100 18 108/79 100
10/11/24 03:55 10/11/24 03:55 10/11/24 03:55 10/11/24 03:55 10/11/24 03:55
10/09/24 10/10/24 10/11/24
11:59 11:59 11:59
Actual Weight 99.427 kg 98.656 kg 98.475 kg
PT 16.0 Sec (11.4-14.6) H 10/08/24 22:25
INR 1.25 10/08/24 22:25
APTT 87.9 Sec (23.4-35.0) H 10/11/24 01:15
Magnesium 1.7 mg/dl (1.6-2.3) 10/10/24 06:15
Triglycerides 80 mg/dl (10-149) 10/09/24 06:12
LDL Cholesterol, Calc 77 mg/dl 10/09/24 06:12
VLDL Cholesterol, Calc 16 mg/dl (0-30) 10/09/24 06:12
HDL Cholesterol 41 mg/dl 10/09/24 06:12
10/08/24
22:25
Wue-Y-Zgmpfsberxs Pept 3150
LAB Results
10/08/24 10/09/24 10/09/24
22:25 06:12 11:52
Troponin I < 0.012 0.129 H* D 0.298 H* D
10/09/24 10/10/24 10/10/24
19:48 06:15 11:34
Troponin I 0.287 H* 0.344 H* 0.296 H*
10/10/24
18:00
Troponin I Cancelled
Physical Exam
Constitutional: No acute distress and Comfortable
EENT: Anicteric and Moist mucous membranes
Cardiovascular: Rhythm & rate is regular, Pedal edema is absent, JVD pressure is normal, S1S2 is normal and Murmur/rub/gallop absent
Respiratory: Respiratory effort normal, Lungs clear to auscul., Wheeze Absent, Crackles Absent and Rhonchi Absent
GI: Soft, Distention absent, Flat, Non tender and Normal bowel sounds
Neuro/Psych: AO x 3
Other: Cath Site
Data Reviewed
-
Date of Service: October 11, 2024
Medical Decision Making: Reviewed Test Results, Independent Historian Assessment and Test Interpretation
EKG: Tracing Personally Visualized and interpreted and Report Reviewed by me
X-Ray/CT/US/MRI/NUC/PET: Image Personally Visualized and interpreted and Report Reviewed by me
Labs: Labs Reviewed by me
[2024-10-11] MEDS: LOPRESSOR 12.5 MG PO (08:10)
[2024-10-11] MEDS: LOW STRENGTH ASPIRIN 81 MG PO (08:10)
[2024-10-11 09:13] LABS: Hematocrit 51.7 % (39.0-52.0); Hemoglobin 18.3 g/dL (13.0-18.0); Mean Corp Hgb Conc. 35.4 g/dL (33.0-37.0); Mean Corpuscular Hgb 33.9 pg (27.0-31.0); Mean Corpuscular Volume 95.7 fL (80.0-94.0); Platelet Count 162 10^3/uL (130-400); Red Cell Dist. Width 13.6 % (11.5-14.5)
[2024-10-11 09:28] LABS: APTT 56.7 Sec (23.4-35.0)
[2024-10-11 09:49] LABS: ALT (SGPT) 111 U/L (0-50); AST (SGOT) 74 U/L (17-59); Albumin 3.8 g/dl (3.5-5.0); Alkaline Phosphatase 69 U/L (38-126); Blood Urea Nitrogen 26 mg/dl (9-20); Calcium 9.8 mg/dl (8.4-10.2); Carbon Dioxide 22 mmol/L (22-30); Chloride 102 mmol/L (98-107); Direct Bilirubin 0.3 mg/dl (0.0-0.4); Estimated Creatinine Clearance 75 ml/min; Glucose 95 mg/dl (70-99); Magnesium 1.7 mg/dl (1.6-2.3); Potassium 4.1 mmol/L (3.5-5.1); Sodium 136 mmol/L (135-145); Total Bilirubin 1.6 mg/dl (0.2-1.3); Total Protein 5.6 g/dl (6.3-8.2); eGFR > 60.00
--- NOTE | 2024-10-11 10:42 | W.PN.HOSP.TC ---
Today's Communication/Plan
-
see A/P
Assessment / Plan
Assessment / Plan
59 yo M with PMH significant for A-Fib s/p ablation who presented to ED complaining of several days of SOB, admitted for new heart failure exacerbation.
Chest CT
No CTA evidence for an acute pulmonary thromboembolism.
Cardiomegaly with reflux of contrast from the right atrium into the IVC and hepatic veins indicating a degree of right heart failure.
Small patchy opacity in the left lower lobe costophrenic sulcus, likely atelectasis or mild pneumonitis.
Mild mediastinal and bilateral hilar lymphadenopathy, nonspecific.
Abdomen/Pelvis CT
Bilateral perinephric fat stranding, nonspecific but could be secondary to an ascending urinary tract infection. Recommend correlation with a urinalysis. No CT evidence for hydronephrosis or nephroureterolithiasis.
Gallbladder wall thickening with minor fat stranding. An abdominal ultrasound has been ordered, at which time this can be assessed further.
Abdominal US
Diffuse gallbladder wall thickening measuring up to 7 mm in thickness. No evidence for cholelithiasis. Secondary gallbladder wall thickening from congestive heart failure would be a consideration given the CT chest findings. Acalculus cholecystitis
is probably less likely but clinical correlation is recommended. Negative sonographic 's sign.
No bile duct dilatation.
A/P:
# Acute systolic HF
Echo this admission 10/11:
Dilated left and right ventricles. Severely reduced left ventricular function. LVEF is 12%. Akinesis of the basal lateral, anterior and inferior grimm with severe hypokinesis of the mid to distal inferior, lateral and mid anterior wall. Stage III
diastolic dysfunction suggestive of restrictive filling pattern and increased filling pressures. Moderate mitral regurgitation.
IV Lasix 40mg daily on hold
for cardiac cath 10/11
# Troponin Elevation
patient reported chest 'fullness'.
Cardiology on board, pt started on aspirin
IV Heparin gtt on hold,
plan for cardiac cath 10/11
# MAEVE , cardiorenal syndrome?
SCr 1.6 -> 1.3 Most recent baseline was 0.9 (2019).
Patient notes that he takes creatine supplement for work-outs. Outpatient records report testosterone supplementation as well.
# Abnormal LFTs, improving, suspect related to acute CHF
# Diarrhea
LFT abnormality seems likely due to hepatic congestion / R CHF.
CT with mild gallbladder wall thickening; seen on US; no evidence of cholelithiasis. *patient was eating and drinking without pain yesterday. He has no fever or risk factors for acalculous cholecystitis and findings can be explained by heart
failure
# Bilateral perinephric stranding seen on CT - UA without evidence of infection; patient without flank pain
# Polycythemia
Chronic / essentially unchanged x years.
Seems likely due to testosterone supplementation.
ASA daily for now.
# constipation
one of main symptoms is bloating in setting of fluid, but now reports constipation may be confusing picture
will order miralax and monitor
DVT Prophylaxis: heparin gtt on hold
Code Status: Full
51 minutes spent on patient care
Anticipated Discharge: 24 - 48 hours
Subjective/Interval History
-
Date of Service: October 11, 2024
Objective Data
-
Labs:
Laboratory Results
10/11/24 10/11/24 10/11/24
00:25 01:15 08:13
WBC 8.0
Hgb 18.3 H
Hct 51.7
Plt Count 162
APTT Cancelled 87.9 H 56.7 H
Sodium 136
Potassium 4.1
Chloride 102
Carbon Dioxide 22
BUN 26 H
Creatinine 1.3
Glucose 95
Calcium 9.8
Total Bilirubin 1.6 H
AST 74 H
ALT 111 H
Alkaline Phosphatase 69
10/11/24
16:10
WBC
Hgb
Hct
Plt Count
APTT Pending
Sodium
Potassium
Chloride
Carbon Dioxide
BUN
Creatinine
Glucose
Calcium
Total Bilirubin
AST
ALT
Alkaline Phosphatase
Vital Signs:
Vital Signs
Temp Pulse Resp BP Pulse Ox
36.7 C 104 18 104/89 98
10/11/24 10:27 10/11/24 10:27 10/11/24 10:27 10/11/24 10:27 10/11/24 10:27
I&O
10/10/24 10/11/24 10/12/24
06:59 06:59 06:59
Intake Total 1800 / 1800 1280 / 1280
Balance 1800 / 1800 1280 / 1280
Review of Systems
-
History Source: Patient
All other systems: Reviewed and negative
Physical Exam
-
General: Well Developed, Well Nourished, No Apparent Distress, Comfortable and Conversant
HEENT: Normocephalic and Atraumatic
Respiratory: Clear to Auscultation and Non Labored Respirations; Negative Accessory Resp Muscle Use
Cardiac: Regular Rhythm and S1/S2
GI: Soft and Nontender
Musculoskeletal: No Edema
Skin: Warm and Dry; Negative Rash
Neuro: AO x 3
Psych: Calm and Intact Judgement/Insight
Data Reviewed
-
Labs: Labs Reviewed by me
[2024-10-11 13:21] LABS: ACT-LR - POC 390 Seconds (116-155)
--- NOTE | 2024-10-11 14:05 | ITS.CL.CATH ---
[facility] - Catheterization
Cardiac Catheterization
Procedure Report:
CARDIAC CATHETERIZATION REPORT
Date of Procedure: 10/11/2024
Referring: Haris Valencia M.D.
INDICATION: New severe cardiomyopathy, abnormal troponin.
PROCEDURE:
1. Left heart catheterization.
2. Coronary angiography.
3. Measurement of Pd/Pa of the mid LAD.
A total of 42 minutes of procedural/moderate sedation was utilized. An independent medical nurse was present to assist with and help manage the patient's level of consciousness and physiologic status.
ACCESS:
1. 6 Grenadian right radial artery using a modified Seldinger technique.
CATHETERS:
1. 5 Gren[place] JR4.
2. 5 Grenadian JL 3.5.
3. 6 Grenadian EBU 4.0 guiding catheter.
HEMODYNAMIC DATA
Weight (kg): 98.4
AO (s/d/x, mmHg): 94/77/85
LV (s/x mmHg): 97/37
LEFT VENTRICULOGRAPHY: Not performed.
CORONARY ANGIOGRAPHY
Dominance: Left.
Left Main: Large size, bifurcating vessel. There is no coronary artery disease.
LAD: Large size vessel giving rise to 1 notable diagonal. There is a 60% lesion in the mid LAD, after the origin of the diagonal.
Ramus: Congenitally absent.
Circumflex: Large size, dominant vessel giving rise to 2 obtuse marginals before giving rise to a left posterolateral branch and terminating as a left posterior descending artery.
RCA: Small to medium size, nondominant vessel. There is no coronary artery disease.
INTERVENTION(S)
1. Measurement of PD/PA of the 60% mid LAD lesion, indicating nonocclusive disease (Pd/Pa = 0.90).
Narrative:
The decision was made to perform physiologic testing. The diagnostic catheter was removed over a wire and exchanged for a(n) EBU 4.0 guiding catheter. The guiding catheter was advanced into the ascending aorta and seated in the left main coronary
artery. Additional heparin was given to obtain an ACT greater than 250 seconds. An iFR wire was zeroed outside of the body, then inserted into the guiding sheath. The wire was advanced and the transducer. Unfortunately, the patient's extremely
narrow pulse pressure made it impossible for the IFR software to normalize. Pd/Pa was recorded at 0.97 at the guide tip. The wire was advanced into the mid LAD, beyond the 60-70% lesion. The Pd/Pa dropped to 0.90 and returned to 0.97 on slow
pullback. The lesion was determined to be nonocclusive by virtue of the fact that the PD PA is typically lower or near the IFR value and did not cross the threshold for ischemia. Furthermore, this lesion is low likelihood to be the cause of the
patient's cardiomyopathy given its severe, diffuse nature. Based on these findings, the decision was made to manage the patient medically. The catheter was disengaged and removed over a standard J-wire.
Closure Device: Vascular band.
Radiation (mGy): 426.33
DAP (cm2.Gy): 40.6822
Fluoroscopy time (minutes): 5.1
CONCLUSIONS
1. Left dominant circulation with a nonocclusive 60% lesion in the mid LAD (PD/PA = 0.90).
2. Severely elevated filling pressures (LVEDP = 37 mmHg at 98.4 kg).
3. Severe cardiomyopathy (LVEF = 12% on echocardiogram) with severe pulse pressure narrowing.
RECOMMENDATIONS:
1. Expectant management after cardiac catheterization via right radial approach.
2. Limited weight bearing on the right wrist for one week.
3. Aggressive primary prevention with low-dose aspirin, high-dose, high potency statin.
4. OMT/GDMT as hemodynamics will tolerate.
5. Continue diuresis, consider Lott-Jonelle catheter and inotrope assistance.
Copy to: Haris Valencia M.D., Brennen Stephenson M.D., Donald Ferrer D.O., Carmina Anna M.D.
Mckinley Rodriguez DO, FACC, FACP
--- NOTE | 2024-10-11 14:07 | PTCARENOTE ---
Patient returned from cardiac cath with radial band in place right wrist. Fingers are cool on the right hand but radial pulse is palpable with a pulse ox of 97%. Reviewed post cath activity restrictions, SR on the monitor with frequent PVC's,
monitoring VS as per protocol. Call vaca in reach, visitor at the bedside.
--- NOTE | 2024-10-11 14:20 | CM ---
Pt was not in room .Spoke with primary contact brother Noe.PT is alert awake oriented he lives with his SO Jackelyn who lives in a 2 story home with 16 step to enter and 15 steps to bed and bathroom. He is independent in driving and in all activities of
daily living.
Admissions changed Address to [place]
Pt VN hx / No SNF history
Pharmacy [facility]
PCP DR Ferrer
PLAN Home no anticipated needs
[2024-10-11] MEDS: LASIX 40 MG IV (15:43)
[2024-10-11] MEDS: FLUSH (NSS) 2 FLUSH IV (15:43)
--- NOTE | 2024-10-11 16:14 | PTCARENOTE ---
Rhythm on telemetry has bigeminy appearance, patient to receive lasix 40mg IV now. Notified El Patel NP of rhythm. IV lasix given as ordered, EKG done and lytes sent to the lab as ordered.
[2024-10-11 17:16] LABS: Blood Urea Nitrogen 25 mg/dl (9-20); Calcium 9.6 mg/dl (8.4-10.2); Carbon Dioxide 19 mmol/L (22-30); Chloride 104 mmol/L (98-107); Estimated Creatinine Clearance 70 ml/min; Glucose 215 mg/dl (70-99); Magnesium 1.7 mg/dl (1.6-2.3); Potassium 4.5 mmol/L (3.5-5.1); Sodium 133 mmol/L (135-145); eGFR 58.62
--- NOTE | 2024-10-11 18:26 | W.PN.UPDATE ---
Update Note
Progress Note Update
Cross-cover-->patient requested Ativan tonight and has received this prior. Upon review he had benzo's-->will order one time dose tonight and defer to attending physician if appropriate to keep on this or not.
[2024-10-11] MEDS: TYLENOL 650 MG PO (18:38)
--- NOTE | 2024-10-11 19:00 | PTCARENOTE ---
Patient assisted oob to the bathroom and then chair. Right wrist dressing is dry and intact. Patient concerned that he felt anxious last night and was given ativan which helped. TT to cross coverage hospitalist Dr. Owen and order placed for ativan
for tonight. Dr. Franco rounding on the unit and EKG post cath shown to him, the patient's brother who is his contact spoke with Dr. Franco re: plan of care.
[2024-10-11] MEDS: DULCOLAX 10 MG PO (19:52)
[2024-10-11] MEDS: ZOFRAN 4 MG IV (21:37)
--- NOTE | 2024-10-11 21:54 | PTCARENOTE ---
Pt rec'd at beginning of shift with family and GF at bedside. Pt with c/o no bm and feeling 'bloated'. Senokot given. Sinus with pvc's on telemetry. Right radial site with DDI, no active bleeding or hematoma present.
At 2144 Pt vomited appprox 200 ml of undigested food. Zofran given.
--- NOTE | 2024-10-11 23:44 | PTCARENOTE ---
Ativan PO one time order not given due to pt's nausea and emesis. Resting at present with nausea improved post Zofran
[2024-10-11] MEDS: ATIVAN 1 MG PO (23:59)
--- NOTE | 2024-10-12 00:03 | PTCARENOTE ---
Pt called nursing to room c/o 'bloating' and feeling anxious. Ativan and Mylicon given. No further feelings of nausea present
[2024-10-12 04:58] VITALS: BP 106/89
[2024-10-12 05:09] VITALS: BMI 27.3
[2024-10-12] MEDS: MYLICON 80 MG PO (05:27)
--- NOTE | 2024-10-12 05:31 | PTCARENOTE ---
Pt with dry heaves this morning 'burning' in his abd. medicated with Mylicon. am VS,labs and wt obtained
[2024-10-12 06:11] LABS: Hematocrit 53.2 % (39.0-52.0); Hemoglobin 18.7 g/dL (13.0-18.0); Mean Corp Hgb Conc. 35.2 g/dL (33.0-37.0); Mean Corpuscular Hgb 34.3 pg (27.0-31.0); Mean Corpuscular Volume 97.6 fL (80.0-94.0); Mean Platelet Volume 12.6 fL (7.4-10.4); Platelet Count 161 10^3/uL (130-400); Red Blood Cell Count 5.45 10^6/uL (4.70-6.10); Red Cell Dist. Width 13.7 % (11.5-14.5); White Blood Cell Count 9.9 10^3/uL (4.8-10.8)
[2024-10-12 06:28] LABS: Blood Urea Nitrogen 30 mg/dl (9-20); Calcium 10.1 mg/dl (8.4-10.2); Carbon Dioxide 26 mmol/L (22-30); Chloride 100 mmol/L (98-107); Estimated Creatinine Clearance 57 ml/min; Glucose 102 mg/dl (70-99); Magnesium 1.8 mg/dl (1.6-2.3); Potassium 5.1 mmol/L (3.5-5.1); Sodium 138 mmol/L (135-145); eGFR 46.44
--- NOTE | 2024-10-12 08:22 | W.PN.HOSP.TC ---
Today's Communication/Plan
-
see A/P
Assessment / Plan
Assessment / Plan
59 yo M with PMH significant for A-Fib s/p ablation who presented to ED complaining of several days of SOB, admitted for new heart failure exacerbation.
Chest CT
No CTA evidence for an acute pulmonary thromboembolism.
Cardiomegaly with reflux of contrast from the right atrium into the IVC and hepatic veins indicating a degree of right heart failure.
Small patchy opacity in the left lower lobe costophrenic sulcus, likely atelectasis or mild pneumonitis.
Mild mediastinal and bilateral hilar lymphadenopathy, nonspecific.
Abdomen/Pelvis CT
Bilateral perinephric fat stranding, nonspecific but could be secondary to an ascending urinary tract infection. Recommend correlation with a urinalysis. No CT evidence for hydronephrosis or nephroureterolithiasis.
Gallbladder wall thickening with minor fat stranding. An abdominal ultrasound has been ordered, at which time this can be assessed further.
Abdominal US
Diffuse gallbladder wall thickening measuring up to 7 mm in thickness. No evidence for cholelithiasis. Secondary gallbladder wall thickening from congestive heart failure would be a consideration given the CT chest findings. Acalculus cholecystitis
is probably less likely but clinical correlation is recommended. Negative sonographic 's sign.
No bile duct dilatation.
A/P:
# Acute systolic HF
# Troponin Elevation likely due to CHF
Echo this admission 10/11: Dilated left and right ventricles. Severely reduced left ventricular function. LVEF is 12%. Akinesis of the basal lateral, anterior and inferior grimm with severe hypokinesis of the mid to distal inferior, lateral and mid
anterior wall. Stage III diastolic dysfunction suggestive of restrictive filling pattern and increased filling pressures. Moderate mitral regurgitation.
IV Lasix 40mg daily on hold
s/p cardiac cath 10/11: Left dominant circulation with a nonocclusive 60% lesion in the mid LAD
GDMT per card
# MAEVE, cardiorenal syndrome vs cath effect
SCr 1.6 -> 1.4 -> 1.7; Most recent baseline was 0.9 (2019).
Patient notes that he takes creatine supplement for work-outs. Outpatient records report testosterone supplementation as well.
Holding Entresto that was started, Lasix on hold
# Abnormal LFTs, improving, suspect related to acute CHF
# Diarrhea, resolved
LFT abnormality seems likely due to hepatic congestion / R CHF.
CT with mild gallbladder wall thickening; seen on US; no evidence of cholelithiasis. *patient was eating and drinking without pain yesterday. He has no fever or risk factors for acalculous cholecystitis and findings can be explained by heart
failure
# Bilateral perinephric stranding seen on CT - UA without evidence of infection; patient without flank pain
# Polycythemia, Chronic / essentially unchanged x years.
Seems likely due to testosterone supplementation.
ASA daily for now.
Informed about outpt heme eval
# constipation
one of main symptoms is bloating in setting of fluid, but now reports constipation may be confusing picture
Cont miralax and Dulcolax PRN
# Indigestion
Start trial of Maalox
DVT Prophylaxis: HSQ
Code Status: Full
DW RN
Anticipated Discharge: 24 - 48 hours
Subjective/Interval History
-
Date of Service: October 12, 2024
Objective Data
-
Labs:
Laboratory Results
10/12/24
05:17
WBC 9.9
Hgb 18.7 H
Hct 53.2 H
Plt Count 161
Sodium 138
Potassium 5.1
Chloride 100
Carbon Dioxide 26
BUN 30 H
Creatinine 1.7 H
Glucose 102 H
Calcium 10.1
Vital Signs:
Vital Signs
Temp Pulse Resp BP Pulse Ox
36.3 C 100 20 106/89 94
10/12/24 05:05 10/12/24 07:45 10/12/24 05:05 10/12/24 04:58 10/12/24 05:05
I&O
10/11/24 10/12/24 10/13/24
06:59 06:59 06:59
Intake Total 1280 / 1280 780 / 780
Output Total 975 / 975
Balance 1280 / 1280 -195 / -195
Review of Systems
-
Abdomen/GI: Reports Nausea and Bloated
Physical Exam
-
General: Well Developed, Well Nourished, No Apparent Distress, Comfortable and Conversant
HEENT: Normocephalic and Atraumatic
Respiratory: Clear to Auscultation and Non Labored Respirations; Negative Accessory Resp Muscle Use
Cardiac: Regular Rhythm and S1/S2
GI: Soft and Nontender
Musculoskeletal: No Edema
Skin: Warm and Dry; Negative Rash
Neuro: AO x 3
Psych: Calm and Intact Judgement/Insight
Data Reviewed
-
Labs: Labs Reviewed by me
[2024-10-12 09:25] VITALS: BP 110/93
[2024-10-12] MEDS: LOW STRENGTH ASPIRIN 81 MG PO (09:26)
[2024-10-12] MEDS: FARXIGA 10 MG PO (09:26)
[2024-10-12] MEDS: MAALOX 30 ML PO (09:27)
[2024-10-12] MEDS: FLUSH (NSS) 1 FLUSH IV (09:27)
--- NOTE | 2024-10-12 09:37 | W.PN.CD ---
Today's Communication / Plan
-
IV Lasix daily
When Cr normalizes then RAAS-I and MRA
Continue SGLT2-I
Later HF BB, will stop for now until more compensated
Will consider MRI as outpatient
If he does poorly he will need a right heart cath to assess status and decide on inotrope and referral downtown
Impression / Plan
-
Background: 59 y/o male with PAF s/p ablation admitted with progressive SOB/CRAIG responsive to diuresis and an elevated troponin concerning for HF + NSTEMI.
New HFrEF, SEVERE
- Pt education provided
Nonischemic dilated cardiomyopathy
- Biventricular systolic dilation and dysfunction on echo
- Stage III diastolic dysfunction
- Etiology uncertain: post-viral, ETOH, genetic, myocarditis other
ETOH, at least a heavy drinker
- I counselled him to abstain
Nonischemic myocardial injury from heart failure
MAEVE
- Had CTA PE protocol and also IV contrast for cor angio
Hx PAF, s/p ablation 07/2019, LA pressure was 1 mmHg at that procedure
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
Polycythemia
- Not a smoker
- Normal ferritin
Subjective/Interval History:
Orthopnea a bit better
Physical Exam
Vital Signs/Labs
Vital Signs
Temp Pulse Resp BP Pulse Ox
97.8 F 102 16 106/89 94
10/12/24 09:25 10/12/24 09:25 10/12/24 09:25 10/12/24 04:58 10/12/24 09:25
10/11/24 10/12/24 10/13/24
06:59 06:59 06:59
Actual Weight 98.475 kg 99.2 kg
10/12/24 05:17
10/12/24 05:17
PT 16.0 Sec (11.4-14.6) H 10/08/24 22:25
INR 1.25 10/08/24 22:25
APTT Cancelled 10/11/24 16:10
Magnesium 1.8 mg/dl (1.6-2.3) 10/12/24 05:17
Triglycerides 80 mg/dl (10-149) 10/09/24 06:12
LDL Cholesterol, Calc 77 mg/dl 10/09/24 06:12
VLDL Cholesterol, Calc 16 mg/dl (0-30) 10/09/24 06:12
HDL Cholesterol 41 mg/dl 10/09/24 06:12
10/08/24
22:25
Cig-A-Wynjwndodjq Pept 3150
LAB Results
10/09/24 10/09/24 10/10/24
11:52 19:48 06:15
Troponin I 0.298 H* D 0.287 H* 0.344 H*
10/10/24 10/10/24
11:34 18:00
Troponin I 0.296 H* Cancelled
Physical Exam
Constitutional: No acute distress
EENT: Anicteric
Cardiovascular: Rhythm & rate is regular and Pedal edema is absent
Respiratory: Respiratory effort normal and Lungs clear to auscul.
GI: Soft and Distention absent
Neuro/Psych: Alert
Data Reviewed
-
Date of Service: October 12, 2024
--- NOTE | 2024-10-12 10:15 | PTCARENOTE ---
Patient denies any sob or chest pain. Does not have much of an appetite but did have a bowel movement last night. Feels tired and resting in bed. Dressing right wrist is dry and intact. TT to Dr. Stephenson to verify resuming IV lasix today. Reinforced
to the patient of need for accurate I&O's.
[2024-10-12 10:46] VITALS: BP 107/88
[2024-10-12] MEDS: LASIX 40 MG IV (10:46)
--- NOTE | 2024-10-12 12:28 | CM ---
isha stone with pts [facility]. his copay is $15/month- zero dollar copay card placed in pts red dc folder
[2024-10-12 15:51] VITALS: BP 94/59
[2024-10-12 19:34] VITALS: BP 116/82
[2024-10-12] MEDS: HEPARIN 5000 UNITS SC (20:09)
[2024-10-12] MEDS: ATIVAN 0.5 MG PO (21:31)
[2024-10-12 23:10] VITALS: BP 107/72
[2024-10-13] VITALS (12 sets, daily range): BP systolic 100–124; BP diastolic 74–100; BMI 27.1
[2024-10-13] MEDS: ZOFRAN 4 MG IV ×2 (02:34→09:28)
[2024-10-13] MEDS: MAALOX 30 ML PO ×2 (02:56→09:30)
[2024-10-13 03:33] LABS: Hematocrit 52.7 % (39.0-52.0); Hemoglobin 18.1 g/dL (13.0-18.0); Mean Corp Hgb Conc. 34.3 g/dL (33.0-37.0); Mean Corpuscular Hgb 33.7 pg (27.0-31.0); Mean Corpuscular Volume 98.1 fL (80.0-94.0); Mean Platelet Volume 12.4 fL (7.4-10.4); Platelet Count 171 10^3/uL (130-400); Red Blood Cell Count 5.37 10^6/uL (4.70-6.10); Red Cell Dist. Width 13.5 % (11.5-14.5); White Blood Cell Count 9.4 10^3/uL (4.8-10.8)
--- NOTE | 2024-10-13 03:53 | PTCARENOTE ---
Pt. NSR-ST with frequent PVC's/bigeminy on the monitor, denies any chest pain but does complain of orthopnea at night, lungs diminished, pulse ox 93-96% on RA. Head of bed elevated and 2L O2 NC placed for sleep which was very helpful. Also nauseous
x 1 with dry heaves, Zofran effective. Pt. sleeping.
[2024-10-13 04:00] LABS: ALT (SGPT) 151 U/L (0-50); AST (SGOT) 118 U/L (17-59); Albumin 3.9 g/dl (3.5-5.0); Alkaline Phosphatase 62 U/L (38-126); Blood Urea Nitrogen 34 mg/dl (9-20); Calcium 9.7 mg/dl (8.4-10.2); Carbon Dioxide 26 mmol/L (22-30); Chloride 97 mmol/L (98-107); Direct Bilirubin 0.5 mg/dl (0.0-0.4); Estimated Creatinine Clearance 46 ml/min; Glucose 121 mg/dl (70-99); Potassium 4.9 mmol/L (3.5-5.1); Sodium 134 mmol/L (135-145); Total Bilirubin 1.9 mg/dl (0.2-1.3); Total Protein 5.7 g/dl (6.3-8.2); eGFR 36.04
--- NOTE | 2024-10-13 09:24 | W.PN.CD ---
Today's Communication / Plan
-
Right heart cath today with plans to leave [facility] in for IV inotrope management
Likely will need IV milrinone
Not ready for BB or RAAS-I or MRA
If does not do well he will be transferred to [facility] for advanced heart failure treatment, pt updated
High risk situation
Will consider MRI as outpatient
Impression / Plan
-
Background: 59 y/o male with PAF s/p ablation admitted with progressive SOB/CRAIG responsive to diuresis and an elevated troponin concerning for HF + NSTEMI.
New HFrEF, SEVERE
- Pt education provided
- Still with orthopnea, marked fatigue/CRAIG/abdominal pain (hepatic congestion likely)
- Suspect severe heart failure with low output (Sinus tach, lowish BP, hepatic congestion) and very high filling pressures
- Would not be surprised to find very low CO/CI and need for milrinone
- Contacted advanced heart failure at [facility] (Cindy), if he does not improve we will need to transfer downtown (a few day process for bed availability)
Nonischemic dilated cardiomyopathy
- Biventricular systolic dilation and dysfunction on echo
- Stage III diastolic dysfunction
- Etiology uncertain: post-viral, ETOH, genetic, myocarditis other
ETOH, at least a heavy drinker
- I counselled him to abstain
Nonischemic myocardial injury from heart failure
- Myocarditis seems less likely, but possible
CAD, single vessel, 60% mLAD
MAEVE
- Had CTA PE protocol and also IV contrast for cor angio
- Low output also adding to MAEVE
Hx PAF, s/p ablation 07/2019, LA pressure was 1 mmHg at that procedure
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
- tele does show rare PVCs, no VT
- Some SR w/o aberration in bigeminy but mostly bigeminal RBBB aberration
Polycythemia
- Not a smoker
- Normal ferritin
Subjective/Interval History:
Had a bad night. Cr higher.
Cath 10/11/2024
1. Left dominant circulation with a nonocclusive 60% lesion in the mid LAD (PD/PA = 0.90).
2. Severely elevated filling pressures (LVEDP = 37 mmHg at 98.4 kg).
3. Severe cardiomyopathy (LVEF = 12% on echocardiogram) with severe pulse pressure narrowing.
Physical Exam
Vital Signs/Labs
Vital Signs
Temp Pulse Resp BP Pulse Ox
98.3 F 97 18 101/82 97
10/13/24 07:50 10/13/24 08:00 10/13/24 07:50 10/13/24 07:48 10/13/24 07:50
10/12/24 10/13/24 10/14/24
06:59 06:59 06:59
Actual Weight 99.2 kg 98.4 kg
10/13/24 02:52
10/13/24 02:52
PT 16.0 Sec (11.4-14.6) H 10/08/24 22:25
INR 1.25 10/08/24 22:25
APTT Cancelled 10/11/24 16:10
Magnesium 2.0 mg/dl (1.6-2.3) 10/13/24 02:52
Triglycerides 80 mg/dl (10-149) 10/09/24 06:12
LDL Cholesterol, Calc 77 mg/dl 10/09/24 06:12
VLDL Cholesterol, Calc 16 mg/dl (0-30) 10/09/24 06:12
HDL Cholesterol 41 mg/dl 10/09/24 06:12
10/08/24
22:25
Wth-M-Isskzxgqhxr Pept 3150
LAB Results
10/10/24 10/10/24
11:34 18:00
Troponin I 0.296 H* Cancelled
Physical Exam
Constitutional: Comfortable (at rest he looks good)
Cardiovascular: Rhythm & rate is regular (high 90-low 100s pulse) and Pedal edema is absent
Respiratory: Respiratory effort normal and Crackles Present (at bases)
GI: Soft, Non tender, Normal bowel sounds and Other (still reports abdominal discomfort)
Neuro/Psych: AO x 3 and Motor deficits absent
Data Reviewed
-
Date of Service: October 13, 2024
[2024-10-13] MEDS: FLUSH (NSS) 2 FLUSH IV (09:27)
[2024-10-13] MEDS: FARXIGA 10 MG PO (09:27)
[2024-10-13] MEDS: LOW STRENGTH ASPIRIN 81 MG PO (09:27)
[2024-10-13] MEDS: HEPARIN 5000 UNITS SC ×2 (09:28→22:23)
--- NOTE | 2024-10-13 09:42 | PTCARENOTE ---
Patient seen by Dr. Stephenson this morning and will schedule RHC for later today and placement of swan, with probable start of milrinone. Patient is aware, NPO x meds. Still feels fatigued and has abdominal discomfort/bloating/nausea. Medicated with
maalox PO and IV zofran. Resting in bed, call vaca in reach.
--- NOTE | 2024-10-13 09:46 | W.PN.HOSP.TC ---
Today's Communication/Plan
-
see A/P
Assessment / Plan
Assessment / Plan
59 yo M with PMH significant for A-Fib s/p ablation who presented to ED complaining of several days of SOB, admitted for new heart failure exacerbation.
Chest CT
No CTA evidence for an acute pulmonary thromboembolism.
Cardiomegaly with reflux of contrast from the right atrium into the IVC and hepatic veins indicating a degree of right heart failure.
Small patchy opacity in the left lower lobe costophrenic sulcus, likely atelectasis or mild pneumonitis.
Mild mediastinal and bilateral hilar lymphadenopathy, nonspecific.
Abdomen/Pelvis CT
Bilateral perinephric fat stranding, nonspecific but could be secondary to an ascending urinary tract infection. Recommend correlation with a urinalysis. No CT evidence for hydronephrosis or nephroureterolithiasis.
Gallbladder wall thickening with minor fat stranding. An abdominal ultrasound has been ordered, at which time this can be assessed further.
Abdominal US
Diffuse gallbladder wall thickening measuring up to 7 mm in thickness. No evidence for cholelithiasis. Secondary gallbladder wall thickening from congestive heart failure would be a consideration given the CT chest findings. Acalculus cholecystitis
is probably less likely but clinical correlation is recommended. Negative sonographic 's sign.
No bile duct dilatation.
A/P:
# Acute systolic HF
# Troponin Elevation likely due to CHF
Echo this admission 10/11: Dilated left and right ventricles. Severely reduced left ventricular function. LVEF is 12%. Akinesis of the basal lateral, anterior and inferior grimm with severe hypokinesis of the mid to distal inferior, lateral and mid
anterior wall. Stage III diastolic dysfunction suggestive of restrictive filling pattern and increased filling pressures. Moderate mitral regurgitation.
IV Lasix 40mg daily on hold
s/p cardiac cath 10/11: Left dominant circulation with a nonocclusive 60% lesion in the mid LAD
GDMT per card
# MAEVE, cardiorenal syndrome vs contrast nephropathy
SCr 1.3 -> ... -> 2.1 today; Most recent baseline was 0.9 (2019).
Patient notes that he takes creatine supplement for work-outs. Outpatient records report testosterone supplementation as well.
Holding Entresto and Lasix
For RHC today 10/13
Renal CS
Check FENA, kidney US
# Bilateral perinephric stranding seen on CT - UA without evidence of infection; patient without flank pain
# Abnormal LFTs, improving, suspect related to acute CHF
# Diarrhea, resolved
LFT abnormality seems likely due to hepatic congestion / R CHF.
CT with mild gallbladder wall thickening; seen on US; no evidence of cholelithiasis. *patient was eating and drinking without pain yesterday. He has no fever or risk factors for acalculous cholecystitis and findings can be explained by heart
failure
Cont to monitor LFT
# Polycythemia, Chronic / essentially unchanged x years.
Seems likely due to testosterone supplementation.
ASA daily for now.
Informed pt about outpt heme eval
# constipation
one of main symptoms is bloating in setting of fluid, but now reports constipation may be confusing picture
Cont miralax and Dulcolax PRN
# Indigestion/ abdominal bloating, likely 2/2 acute CHF
Cont trial of Maalox
Zofran PRN
DVT Prophylaxis: HSQ
Code Status: Full
DW Card
DW Renal
DW RN
total time spent 51 min
Anticipated Discharge: > 48 hours
Subjective/Interval History
-
Date of Service: October 13, 2024
Objective Data
-
Labs:
Laboratory Results
10/13/24
02:52
WBC 9.4
Hgb 18.1 H
Hct 52.7 H
Plt Count 171
Sodium 134 L
Potassium 4.9
Chloride 97 L
Carbon Dioxide 26
BUN 34 H
Creatinine 2.1 H
Glucose 121 H
Calcium 9.7
Total Bilirubin 1.9 H
AST 118 H
ALT 151 H
Alkaline Phosphatase 62
Vital Signs:
Vital Signs
Temp Pulse Resp BP Pulse Ox
36.8 C 97 18 101/82 97
10/13/24 07:50 10/13/24 08:00 10/13/24 07:50 10/13/24 07:48 10/13/24 07:50
I&O
10/12/24 10/13/24 10/14/24
06:59 06:59 06:59
Intake Total 780 / 780 960 / 960 200 / 200
Output Total 975 / 975 2099 / 2099 125 / 125
Balance -195 / -195 -1140 / -1140 75 / 75
--- NOTE | 2024-10-13 11:07 | CM ---
CM following for DC planning needs.
Met w/ patient at bedside. Reviewed CM role.
Pt. anticipates CATH today and likely transfer to [facility]. Emotional support offered.
Will cont. to follow.
--- NOTE | 2024-10-13 11:53 | W.CON.NEPH ---
Consultation
-
Date/Time Consultation Requested: 10/13/2024 at 8 AM
Date/Time Consultation Performed: 10/13/2024 at 11 AM
Requesting Provider: Dr. Green
Performing Provider: Dr. Blood
Reason for Consultation: Acute kidney injury
Medical History
-
Chief Complaint: Acute kidney injury
History of Present Illness:
59y M with PMH significant for A-Fib s/p ablation who presents to ED complaining of SOB. Patient states that he has felt progressively more SOB for the past several days. Had a 13 pound weight gain in about 4 days.
Over the last 3 months only changes to his health was a recent flu.
No alcohol or substance abuse.
Status post cardiac catheterization 10/11/2024 showed left dominant circulation with a nonocclusive 60% lesion in the mid LAD (PD/PA = 0.90), Severely elevated filling pressures (LVEDP = 37 mmHg at 98.4 kg, Severe cardiomyopathy (LVEF = 12% on
echocardiogram) with severe pulse pressure narrowing.
Was diuresed and developed acute kidney injury with a creatinine of 2.1 up from 1.3.
Past Medical History
Atrial fibrillation, new cardiomyopathy
Social History
Tobacco: Non-Smoker
Alcohol: None
Family History
Family History: Not Pertinent
Allergies / Home Medications
Allergy/AdvReac Type Severity Reaction Status Date / Time
No Known Allergies Allergy Verified 08/25/19 12:06
�Medication �Instructions �Recorded �Confirmed �Type
B Complex 1 tab PO DAILY Supplement 10/08/24 10/09/24 History
Multi-Vitamins 1 tab PO DAILY Supplement 10/08/24 10/09/24 History
Vitamin D3 5,000 mg PO DAILY Supplement 10/08/24 10/09/24 History
creatine monohydrate 7 mg PO DAILY Supplement 10/08/24 10/09/24 History
Review of Systems
-
Mild shortness of breath
All other systems: Negative unless noted
Physical Exam
Vital Signs
Vital Signs
Temp Pulse Resp BP Pulse Ox
98.5 F 97 18 101/82 97
10/13/24 11:42 10/13/24 08:00 10/13/24 11:42 10/13/24 07:48 10/13/24 11:42
Lab Results
WBC 9.4 10^3/uL (4.8-10.8) 10/13/24 02:52
RBC 5.37 10^6/uL (4.70-6.10) 10/13/24 02:52
Hgb 18.1 g/dL (13.0-18.0) H 10/13/24 02:52
Hct 52.7 % (39.0-52.0) H 10/13/24 02:52
Plt Count 171 10^3/uL (130-400) 10/13/24 02:52
Sodium 134 mmol/L (135-145) L 10/13/24 02:52
Potassium 4.9 mmol/L (3.5-5.1) 10/13/24 02:52
Chloride 97 mmol/L (98-107) L 10/13/24 02:52
Carbon Dioxide 26 mmol/L (22-30) 10/13/24 02:52
BUN 34 mg/dl (9-20) H 10/13/24 02:52
Creatinine 2.1 mg/dL (0.7-1.3) H 10/13/24 02:52
eGFR 36.04 10/13/24 02:52
Glucose 121 mg/dl (70-99) H 10/13/24 02:52
Calcium 9.7 mg/dl (8.4-10.2) 10/13/24 02:52
Kbv-M-Fprlysmevwn Pept 3150 pg/ml 10/08/24 22:25
Albumin 3.9 g/dl (3.5-5.0) 10/13/24 02:52
Physical Exam
General no acute distress
HEENT no cephalic atraumatic extraocular muscle intact no scleral icterus no JVD neck supple
lungs clear to auscultation bilateral
heart regular S1-S2 positive
abdomen soft nontender positive bowel sounds
extremities no edema pulses present bilateral
Neurologically nonfocal alert and oriented x 3
Skin no lesions no abrasions no petechiae
Psych normal affect no bizarre behavior
Data Reviewed
-
Radiology: Image Personally Visualized and interpreted
CT Scan: Image Personally Visualized and interpreted
Ultrasound: Image Personally Visualized and interpreted
Labs: Labs Reviewed by me, Discussed with Physician and Discussed with Patient
Critical Care Time (in minutes): 31
Assessment/Plan
-
59y M with PMH significant for A-Fib s/p ablation who presents to ED complaining of SOB. Patient states that he has felt progressively more SOB for the past several days. Had a 13 pound weight gain in about 4 days.
Status post cardiac catheterization 10/11/2024 showed left dominant circulation with a nonocclusive 60% lesion in the mid LAD (PD/PA = 0.90), Severely elevated filling pressures (LVEDP = 37 mmHg at 98.4 kg, Severe cardiomyopathy (LVEF = 12% on
echocardiogram) with severe pulse pressure narrowing.
Was diuresed and developed acute kidney injury with a creatinine of 2.1 up from 1.3.
Periods of hypotension/IV contrast 10/09 with normal renal function at that time
Impression.
Acute kidney injury.= no obstructive uropathy on ultrasound/suspect this is cardiorenal
Nonischemic cardiomyopathy. Ejection fraction 12%.
Previous atrial fibrillation status post ablation
Plan.
Hold diuretics/Entresto/avoid SGLT2 inhibitor at this time
Agree with right heart cath
Check urine indices and fractional excretion of sodium/urea.
Possible inotropic support pending results
Minimal weight change despite diuretics although patient clinically feels less bloated in his abdomen.
AM labs
Total Time Spent with Patient (in minutes): 31
--- NOTE | 2024-10-13 12:12 | PTCARENOTE ---
The patient's brother Lobo telephoned and requested an update about the plan for today. Was aware he was going for a [facility] today. Wanted it known that his brother was not upfront about his alcohol intake. States he drinks during the week, several
martinis etc and then on the weekend his drinking is excessive to the point of him passing out. He drinks hard liquor and states that this has been going on for at least 20 years. He felt this was important that everyone know this information with
how serious his condition is. TT to Dr. Green and Dr. Stephenson with this info.
--- NOTE | 2024-10-13 13:54 | PTCARENOTE ---
Patient taken to the blender laborer, will be transferred to room 2260 after RHC.
[2024-10-13 14:47] LABS: Urine Sodium 5 mmol/L (30-90)
--- NOTE | 2024-10-13 14:56 | ITS.CL.CATH ---
Dairy Technologist - Catheterization
Cardiac Catheterization
Procedure Report:
RIGHT HEART CATHETERIZATION
Date of Procedure: 10/13/2024
Referring: Brennen Stephenson M.D.
INDICATION: Worsening heart failure, left ventricular ejection fraction 12%, worsening renal function.
ACCESS:
8 [place] right internal jugular vein using a modified Seldinger technique with a micropuncture kit under ultrasound guidance. Ultrasound image obtained.
CATHETERS:
7.5 [place]an [place].
PROCEDURE:
The patient was prepped and draped in standard sterile fashion. The area for internal jugular access was anesthetized with 1% lidocaine. The right internal jugular vein was identified on ultrasound and punctured with the micropuncture needle. A
wire was inserted through the micropuncture needle into the right atrium. Fluoroscopy confirmed adequate placement. The needle was removed and the micropuncture sheath was advanced over the wire and into the right internal jugular vein. The inner
dilator was removed and a 0.035 J-wire was advanced into the right atrium. The outer micropuncture sheath was withdrawn and a small incision was made next of the wire. The 8 Chilean dilator was advanced over the wire with relative ease. The
dilator was removed and the 8 [place]an sheath was then advanced into the right internal jugular vein. A 7.5 [place]an thermodilution [place] catheter was advanced through the sheath into the superior vena cava. An SVC oxygen saturation was drawn. The
balloon wedge catheter was advanced into the pulmonary artery and a pulmonary artery oxygen saturation was drawn. Arterial oxygen saturation was assumed from pulse oximetry. Cardiac output was calculated using the Latosha equation and thermodilution.
The PA, wedge, RV and RA pressures were measured. The [place] catheter was locked in place using the cover (58 cm to the hub). The 8 [place]an sheath was sutured in place and covered with a Tegaderm.
Weight (kg): 98.0
PA (s/d/x mmHg): 58/38/45
PCWP (a/v/x mmHg): 48/45/42
RV (s/x mmHg): 58/20
RA (a/v/x mmHg): 26/22/21
SVC SvO2 (%): 51.9
IVC SvO2 (%): Not obtained.
RA SvO2 (%): Not obtained.
RV SvO2 (%): Not obtained.
PA SvO2 (%): 49.3
SaO2 (%): 97.0 (assumed)
Hbg (g/dL): 18.5
Latosha
CO (liters/minute): 2.37
CI (liters/minute/m2): 1.04
Thermodilution
CO (liters/minute): 2.53
CI (liters/minute/m2): 1.12
TPG (mmHg): 3
PVR (Mon Units): 1.27
AVO2 Difference (Volume %): 12.0
Radiation (mGy): 40.5
DAP (cm2.Gy): 4.70
Fluoroscopy time (minutes): 1.9
CONCLUSION:
1. Severely elevated filling pressures (PCWP = 42 mmHg at 98.0 kg).
2. Severely depressed cardiac function (CI = 1.04 L/min/m� by Latosha, 1.12 L/min/m� by Thermo), consistent with cardiogenic shock.
3. 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
RECOMMENDATIONS:
1. Expectant management after right heart catheterization via right internal jugular approach.
2. Initiate milrinone 0.25 mg/kg/min.
3. Discontinue furosemide IV bolus and start bumetanide drip at 1 mg/h.
4. Continued consultation with advanced heart failure services at [facility].
Copy to: Brennen Stephenson M.D., Donald Ferrer DYesenia., Camille Green M.D., Maria Guadalupe White D.O.
Mckinley Rodriguez D.O., FACC, FACP
--- NOTE | 2024-10-13 15:19 | PTCARENOTE ---
Report given to Jazmin in CVICU, belongings taken to room 2260.
[2024-10-13] MEDS: PRIMACOR 20 MG 100 IV (15:32)
[2024-10-13] MEDS: BUMEX 50 IV ×2 (15:34→22:28)
--- NOTE | 2024-10-13 15:49 | PTCARENOTE ---
received patient from aquatic life laborer to room 2260. pt AAOX3, denies pain. SR/ST on telemetry heart rate in 90s with pvcs. + pulses, no edema. pt on room air, sat 95%. lung sounds diminished. hypoactive bowel sounds. abdomen round, distended. pt given
urinal. Right IJ swan/cordis leveled and zeroed. Milrinone and bumex gtt started per orders. pt oriented to room and unit. pt updated on plan of care.
[2024-10-13 20:30] LABS: ALT (SGPT) 148 U/L (0-50); AST (SGOT) 99 U/L (17-59); Albumin 4.2 g/dl (3.5-5.0); Alkaline Phosphatase 61 U/L (38-126); Blood Urea Nitrogen 33 mg/dl (9-20); Calcium 9.4 mg/dl (8.4-10.2); Carbon Dioxide 28 mmol/L (22-30); Chloride 93 mmol/L (98-107); Estimated Creatinine Clearance 57 ml/min; Glucose 162 mg/dl (70-99); Lactic Acid 1.9 mmol/L (0.7-2.0); Magnesium 1.9 mg/dl (1.6-2.3); Phosphorus 4.1 mg/dl (2.5-4.5); Potassium 3.7 mmol/L (3.5-5.1); Sodium 134 mmol/L (135-145); Total Bilirubin 1.9 mg/dl (0.2-1.3); Total Protein 6.1 g/dl (6.3-8.2); eGFR 46.44
[2024-10-13] MEDS: KCL 40 MEQ PO (21:18)
[2024-10-13] MEDS: MAGNESIUM OXIDE 500 MG PO (21:18)
--- NOTE | 2024-10-13 22:15 | PTCARENOTE ---
Report received from EBONI Wu. Walking rounds done. Pt awake, alert, oriented x 4. Speech clear. Equal strength x 4. On room air. Sats 95%. BBS present. Decreased B bases. Pt on Milrinone gtt at 0.25 mcg/kg/min and Bumex gtt mat 1 mg/hr. CI done:
1.4. MYRNA Ortiz notified. BP 90-110's systolic. Pt in SR with frequent PVCs. Labs drawn and sent. PA aware of lab results. KCL 40 meq and Magnesium 400 mg po given as ordered. RID [place] at 58 cm. Pulsatile PA and CVP waveforms. Belly mildly
edematous. Fair appetite. Normoactive bs x 4. Passing some flatus. Able to stand and void clear, yellow urine in urinal-large amounts while on Bumex gtt. Family at bedside. Dr. Rodriguez in at 1915 to talk with pt and family. Ongoing plan of care.
[2024-10-13] MEDS: ATIVAN 0.5 MG PO (23:09)
[2024-10-14] VITALS (25 sets, daily range): BP systolic 90–117; BP diastolic 67–97; BMI 25.6
[2024-10-14] MEDS: PRIMACOR 20 MG 100 IV ×2 (01:54→15:55)
--- NOTE | 2024-10-14 02:35 | PTCARENOTE ---
Repeat CI 2.04. Maintaining SR. Bumex gtt and Milrinone gtt remain unchanged. Pt up with assistance to void. Angel NORRIS aware of large amount of urine voided. Normotensive.
--- NOTE | 2024-10-14 03:20 | DOWNTIME ---
There was a [employer] 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 Downtime documentation of patient's care, including medication administrations, has been reconciled in the electronic record per guidelines. Refer to the
patient's paper chart under the miscellaneous tab to see printed paper medication records and downtime forms.
[2024-10-14 04:48] LABS: Hemoglobin 18.3 g/dL (13.0-18.0); Mean Corp Hgb Conc. 36.6 g/dL (33.0-37.0); Mean Corpuscular Hgb 34.5 pg (27.0-31.0); Mean Corpuscular Volume 94.2 fL (80.0-94.0); Mean Platelet Volume 12.1 fL (7.4-10.4); Platelet Count 157 10^3/uL (130-400); Red Blood Cell Count 5.31 10^6/uL (4.70-6.10); Red Cell Dist. Width 12.8 % (11.5-14.5); White Blood Cell Count 9.9 10^3/uL (4.8-10.8)
[2024-10-14 05:14] LABS: ALT (SGPT) 145 U/L (0-50); AST (SGOT) 87 U/L (17-59); Alkaline Phosphatase 64 U/L (38-126); Blood Urea Nitrogen 31 mg/dl (9-20); Calcium 9.2 mg/dl (8.4-10.2); Carbon Dioxide 32 mmol/L (22-30); Chloride 92 mmol/L (98-107); Direct Bilirubin 0.4 mg/dl (0.0-0.4); Estimated Creatinine Clearance 57 ml/min; Glucose 100 mg/dl (70-99); Magnesium 1.7 mg/dl (1.6-2.3); Potassium 3.6 mmol/L (3.5-5.1); Sodium 135 mmol/L (135-145); Total Protein 5.9 g/dl (6.3-8.2); eGFR 46.44
[2024-10-14] MEDS: MAALOX 30 ML PO (05:14)
--- NOTE | 2024-10-14 05:15 | PTCARENOTE ---
Pt helped to standing to void clear, yellow urine-700 mls. Pt helped to standing scale and weighed. Assisted back to bed. C/O indigestion. Maalox 30 mls given. Labs were drawn and sent. Last CI 1.97. Milrinone gtt and Bumex gtt remain at current
dosages (unchanged).
[2024-10-14] MEDS: MAGNESIUM OXIDE 500 MG PO (06:48)
[2024-10-14] MEDS: KCL 40 MEQ PO (06:48)
--- NOTE | 2024-10-14 07:46 | W.PN.CD ---
Today's Communication / Plan
-
D/C bumetanide gtt.
Maintain milrinone.
Keep K > 4, Mg > 2, Ca > 8 and PO4 > 2.5.
Monitor UOP, weight, lactate, LFT's and renal function.
Impression / Plan
-
Background: 59 y/o male with PAF s/p ablation admitted with progressive SOB/CRAIG responsive to diuresis and an elevated troponin concerning for HF + NSTEMI.
#HFrEF/Cardiogenic shock
-Acute, this is a threat to life.
-Pt education provided.
-[place] showed evidence of cardiogenic shock prompting initiation of milrinone and bumetanide gtt. This has resulted in a massive diuresis and improvement in his PAd (now 17 mmHg) and CI (2.0 L/min/m2).
-D/C bumetanide gtt and allow to equilibrate. Restart bumetanide at 1 mg IV daily tomorrow.
-Monitor weight, UOP, lactate, LFT's, renal function and CI as we allow him to equilibrate.
-Keep K > 4, Mg > 2, Ca > 8, PO4 > 2.5.
-Contacted advanced heart failure at [facility] (Cindy), if he does not improve we will need to transfer downtown (a few day process for bed availability).
#Nonischemic dilated cardiomyopathy
-New diagnosis.
-Biventricular systolic dilation and dysfunction on echo with stage III diastolic dysfunction.
-Etiology uncertain, but high likelihood of EtOH (previously underappreciated alcohol intake). DDx includes post-viral, genetic, myocarditis, etc.
-We will continue to apply GDMT when his hemodynamics will tolerate.
-We have counselled him on absolute alcohol abstinence.
#CAD
-New diagnosis.
-Single vessel, 60% mLAD.
-Start aspirin 81 mg daily.
-High dose, high potency statin.
#MAEVE
-Acute.
-DDx includes cardiorenal as well as ZENAIDA (CTA PE protocol and also IV contrast for coronary angiography).
-Trend with diuresis.
#Hx PAF
-Currently in NSR/sinus tachycardia.
-Rate/rhythm control - s/p ablation 07/2019, LA pressure was 1 mmHg at that procedure.
-Not currently tolerating any rate control (probably needed to maintain CO/CI).
-If rate control were needed, would favor digoxin or amiodarone.
-CHADS2-Vasc = 2 (CHF, vascular disease).
-Not previously on anticoagulation post ablation. We may need to re-assess his AF burden as an outpatient.
#Polycythemia
-Not a smoker.
-Normal ferritin.
Critical Care Time = 35 minutes.
Subjective/Interval History:
Evidence of worsening shock yesterday prompted [place] placement, confirming worsening filling pressures, CI of 1.1.
Milrinone 0.25 mg/kg/min and bumetanide 1 mg/hour started.
Dramatic uptick in UOP. Weight is down 5.5 kg (!).
PA diastolic pressure now 17 mmHg. CI improved to ~2.0 L/min/m2.
LFT's improving.
Lactate now 1.0.
Magnesium 1.7.
Creatinine improved to 1.7.
DATA:
Transthoracic Echocardiogram, 10/11/2024:
CONCLUSIONS
Dilated left and right ventricles. Severely reduced left ventricular function.
LVEF is 12% by crain's method of discs.
Akinesis of the basal lateral, anterior and inferior grimm with severe
hypokineis of the mid to distal inferior, lateral and mid anterior wall. The
septal wall is best preserved.
Right ventricular systolic function.
Stage III diastolic dysfunction suggestive of restrictive filling pattern and
increased filling pressures.
Moderate mitral regurgitation.
No prior study available for comparison.
Cardiac Catheterization/Coronary angiography, 10/11/2024:
1. Left dominant circulation with a nonocclusive 60% lesion in the mid LAD (PD/PA = 0.90).
2. Severely elevated filling pressures (LVEDP = 37 mmHg at 98.4 kg).
3. Severe cardiomyopathy (LVEF = 12% on echocardiogram) with severe pulse pressure narrowing.
Right Heart Catheterization, 10/13/2024:
CONCLUSION:
1. Severely elevated filling pressures (PCWP = 42 mmHg at 98.0 kg).
2. Severely depressed cardiac function (CI = 1.04 L/min/m� by Latosha, 1.12 L/min/m� by Thermo), consistent with cardiogenic shock.
3. 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
Physical Exam
Vital Signs/Labs
Vital Signs
Temp Pulse Resp BP Pulse Ox
36.5 C 88 12 92/77 94
10/14/24 06:00 10/14/24 06:45 10/14/24 06:45 10/14/24 06:00 10/14/24 06:45
10/12/24 10/13/24 10/14/24
11:59 11:59 11:59
Actual Weight 99.2 kg 98.4 kg 92.9 kg
10/14/24 04:30
10/14/24 04:30
PT 16.0 Sec (11.4-14.6) H 10/08/24 22:25
INR 1.25 10/08/24 22:25
APTT Cancelled 10/11/24 16:10
Magnesium 1.7 mg/dl (1.6-2.3) 10/14/24 04:30
Triglycerides 80 mg/dl (10-149) 10/09/24 06:12
LDL Cholesterol, Calc 77 mg/dl 10/09/24 06:12
VLDL Cholesterol, Calc 16 mg/dl (0-30) 10/09/24 06:12
HDL Cholesterol 41 mg/dl 10/09/24 06:12
10/08/24
22:25
Oiu-K-Uigaojbdiql Pept 3150
Physical Exam
Constitutional: No acute distress and Comfortable
EENT: Anicteric and Moist mucous membranes
Cardiovascular: Rhythm & rate is regular, Pedal edema is absent, JVD pressure is normal, S1S2 is normal and Murmur/rub/gallop absent
Respiratory: Respiratory effort normal, Lungs clear to auscul., Wheeze Absent, Crackles Absent and Rhonchi Absent
GI: Soft, Distention absent, Flat, Non tender and Normal bowel sounds
Neuro/Psych: AO x 3
Other: Cath Site (RIJ [place] catheter in place.)
Data Reviewed
-
Date of Service: October 14, 2024
Medical Decision Making: Reviewed Test Results, Independent Historian Assessment and Test Interpretation
EKG: Tracing Personally Visualized and interpreted and Report Reviewed by me
Echo: Tracing Personally Visualized and interpreted and Report Reviewed by me
X-Ray/CT/US/MRI/NUC/PET: Image Personally Visualized and interpreted and Report Reviewed by me
Medical Tests (PFT, Pathology etc): Image Personally Visualized and interpreted and Report Reviewed by me
Labs: Labs Reviewed by me
Old Records: Reviewed
[2024-10-14] MEDS: FARXIGA 10 MG PO (08:01)
[2024-10-14] MEDS: HEPARIN 5000 UNITS SC ×2 (08:01→20:57)
[2024-10-14] MEDS: LOW STRENGTH ASPIRIN 81 MG PO (08:01)
--- NOTE | 2024-10-14 08:15 | PTCARENOTE ---
Assumed care of patient at 0700. Pt is awake, alert, and oriented. No complaints of pain or SOB at this time. Pt remains SR with HR 90's. BP 100/79 MAP 86. PA 31/20, CVP 6. CO 3.52, CI 1.55. Pulse oximetry 95% on room air. Pt tolerating PO diet.
Voiding without issue. Right radial site with palpable pulse, site EFRA. Pt Right IJ swan in place at 58cm. Right IJ Cordis intact. Remains on Milrinone and Bumex gtt per order.
--- NOTE | 2024-10-14 10:22 | W.PN.HOSP.TC ---
Today's Communication/Plan
-
see A/P
Assessment / Plan
Assessment / Plan
59 yo M with PMH significant for A-Fib s/p ablation who presented to ED complaining of several days of SOB, admitted for new heart failure exacerbation.
Chest CT
No CTA evidence for an acute pulmonary thromboembolism.
Cardiomegaly with reflux of contrast from the right atrium into the IVC and hepatic veins indicating a degree of right heart failure.
Small patchy opacity in the left lower lobe costophrenic sulcus, likely atelectasis or mild pneumonitis.
Mild mediastinal and bilateral hilar lymphadenopathy, nonspecific.
Abdomen/Pelvis CT
Bilateral perinephric fat stranding, nonspecific but could be secondary to an ascending urinary tract infection. Recommend correlation with a urinalysis. No CT evidence for hydronephrosis or nephroureterolithiasis.
Gallbladder wall thickening with minor fat stranding. An abdominal ultrasound has been ordered, at which time this can be assessed further.
Abdominal US
Diffuse gallbladder wall thickening measuring up to 7 mm in thickness. No evidence for cholelithiasis. Secondary gallbladder wall thickening from congestive heart failure would be a consideration given the CT chest findings. Acalculus cholecystitis
is probably less likely but clinical correlation is recommended. Negative sonographic 's sign.
No bile duct dilatation.
A/P:
# Acute systolic HF
# Troponin Elevation likely due to CHF
Echo this admission 10/11: Dilated left and right ventricles. Severely reduced left ventricular function. LVEF is 12%. Akinesis of the basal lateral, anterior and inferior grimm with severe hypokinesis of the mid to distal inferior, lateral and mid
anterior wall. Stage III diastolic dysfunction suggestive of restrictive filling pattern and increased filling pressures. Moderate mitral regurgitation.
IV Lasix 40mg daily on hold
s/p cardiac cath 10/11: Left dominant circulation with a nonocclusive 60% lesion in the mid LAD
GDMT per card
# MAEVE, cardiorenal syndrome
SCr peaked at 2.1 -> 1.7 today; Most recent baseline was 0.9 (2019).
Patient notes that he takes creatine supplement for work-outs. Outpatient records report testosterone supplementation as well.
Holding Entresto and Lasix
s/p RHC 10/13, noted significant increase in wedge pressure (PCWP = 42 mmHg)
Initiated milrinone drip and bumetanide drip at 1 mg/h.
Card on board, Renal on board
# Bilateral perinephric stranding seen on CT - UA without evidence of infection; patient without flank pain
# Abnormal LFTs, suspect related to acute CHF
# Diarrhea, resolved
LFT abnormality seems likely due to hepatic congestion / R CHF.
CT with mild gallbladder wall thickening; seen on US; no evidence of cholelithiasis.
He denies to abd symptoms
Cont to monitor LFT
# Polycythemia, Chronic / essentially unchanged x years.
Seems likely due to testosterone supplementation.
ASA daily for now.
Informed pt about outpt heme eval
# constipation
one of main symptoms is bloating in setting of fluid, but now reports constipation may be confusing picture
Cont miralax and Dulcolax PRN
# Indigestion/ abdominal bloating, likely 2/2 acute CHF
Cont trial of Maalox PRN, Zofran PRN
DVT Prophylaxis: HSQ
Code Status: Full
Offered to update pt's brother. Pt politely declined and says that he will update his family himself.
Anticipated Discharge: > 48 hours
Subjective/Interval History
-
Date of Service: October 14, 2024
Objective Data
-
Labs:
Laboratory Results
10/14/24
04:30
WBC 9.9
Hgb 18.3 H
Hct 50.0
Plt Count 157
Sodium 135
Potassium 3.6
Chloride 92 L
Carbon Dioxide 32 H
BUN 31 H
Creatinine 1.7 H
Glucose 100 H
Calcium 9.2
Total Bilirubin 2.0 H
AST 87 H
ALT 145 H
Alkaline Phosphatase 64
Vital Signs:
Vital Signs
Temp Pulse Resp BP Pulse Ox
36.6 C 91 10 100/79 96
10/14/24 08:00 10/14/24 08:15 10/14/24 08:15 10/14/24 08:00 10/14/24 08:15
I&O
10/13/24 10/14/24 10/15/24
06:59 06:59 06:59
Intake Total 960 / 960 1481.0 / 1492.4 52.8 / 52.8
Output Total 2099 / 2099 9625 / 9625 600 / 600
Balance -1140 / -1140 -8144.0 / -8132.6 -547.2 / -547.2
Review of Systems
-
All other systems: Reviewed and negative
Constitutional: Reports No Symptoms
Physical Exam
-
General: Well Developed, Well Nourished, No Apparent Distress, Comfortable and Conversant
HEENT: Normocephalic and Atraumatic
Respiratory: Clear to Auscultation and Non Labored Respirations; Negative Accessory Resp Muscle Use
Cardiac: Regular Rhythm and S1/S2
GI: Soft and Nontender
Musculoskeletal: No Edema
Skin: Warm, Dry and IV Access / Catheter Site; Negative Rash
Neuro: AO x 3
Psych: Calm and Intact Judgement/Insight
Data Reviewed
-
Labs: Labs Reviewed by me
--- NOTE | 2024-10-14 10:45 | CM ---
Chart reviewed. Patient is independent of ADLS, lives with his SO in a 2 [address], 16 [address]SEY, 0 DME. Patient diuresed 5.5 kg. If patient does not improve plan is to transfer to [facility]. CM to follow
--- NOTE | 2024-10-14 11:15 | PTCARENOTE ---
Pt ambulated entire unit with RN assistance, tolerated well. Remains on Milrinone gtt. Bumex gtt d/c'd this AM. BP 104/75 MAP 84. PA 36/25, CVP 11, CO 4.47, CI 1.97. Pt OOB in chair.
--- NOTE | 2024-10-14 11:34 | W.PN.NEPH.PH ---
Today's Communication / Plan
-
Discontinue Bumex drip
Assessment/Plan
-
59y M with PMH significant for A-Fib s/p ablation who presents to ED complaining of SOB. Patient states that he has felt progressively more SOB for the past several days. Had a 13 pound weight gain in about 4 days.
Status post cardiac catheterization 10/11/2024 showed left dominant circulation with a nonocclusive 60% lesion in the mid LAD (PD/PA = 0.90), Severely elevated filling pressures (LVEDP = 37 mmHg at 98.4 kg, Severe cardiomyopathy (LVEF = 12% on
echocardiogram) with severe pulse pressure narrowing.
Was diuresed and developed acute kidney injury with a creatinine of 2.1 up from 1.3.
Periods of hypotension/IV contrast 10/09 with normal renal function at that time
Impression.
Acute kidney injury.= no obstructive uropathy on ultrasound/suspect this is cardiorenal
Nonischemic cardiomyopathy. Ejection fraction 12%.= Suspect alcohol etiology
Previous atrial fibrillation status post ablation
Plan.
Hold Entresto/avoid SGLT2 inhibitor at this time
right heart cath significant elevated pressure
On milrinone and Bumex drip
8 L negative since starting inotrope and diuretic
Discontinue Bumex
Creatinine stable 1.7 monitor bicarb
Total Time Spent with Patient (in minutes): 31
-
-
Date of Service: October 14, 2024
CC / HPI / ROS
-
Chief Complaint:
Shortness of breath weight gain
History of Present Illness:
Acute kidney injury secondary to cardiorenal nonischemic cardiomyopathy
Review of Systems:
No chest pain
No shortness of breath
Nonoliguric
Labs
-
Labs:
WBC 9.9 10^3/uL (4.8-10.8) 10/14/24 04:30
RBC 5.31 10^6/uL (4.70-6.10) 10/14/24 04:30
Hgb 18.3 g/dL (13.0-18.0) H 10/14/24 04:30
Hct 50.0 % (39.0-52.0) 10/14/24 04:30
Plt Count 157 10^3/uL (130-400) 10/14/24 04:30
Sodium 135 mmol/L (135-145) 10/14/24 04:30
Potassium 3.6 mmol/L (3.5-5.1) 10/14/24 04:30
Chloride 92 mmol/L (98-107) L 10/14/24 04:30
Carbon Dioxide 32 mmol/L (22-30) H 10/14/24 04:30
BUN 31 mg/dl (9-20) H 10/14/24 04:30
Creatinine 1.7 mg/dL (0.7-1.3) H 10/14/24 04:30
eGFR 46.44 10/14/24 04:30
Glucose 100 mg/dl (70-99) H 10/14/24 04:30
Calcium 9.2 mg/dl (8.4-10.2) 10/14/24 04:30
Phosphorus 4.1 mg/dl (2.5-4.5) 10/13/24 20:07
Uar-S-Rtmdriroqlr Pept 3150 pg/ml 10/08/24 22:25
Albumin 4.0 g/dl (3.5-5.0) 10/14/24 04:30
Physical Exam
-
Vital Signs:
Vital Signs
Temp Pulse Resp BP Pulse Ox
97.9 F 105 18 104/75 93
10/14/24 08:00 10/14/24 11:30 10/14/24 11:00 10/14/24 11:00 10/14/24 08:30
--- NOTE | 2024-10-14 16:45 | PTCARENOTE ---
Pt remains SR/ST, HR 90's-106. BP 93/83 MAP 87. PA 44/27, CVP 12. CO 5.13, CI 2.26. Pt remains on Milrinone gtt. Pulse oximetry 95% on room air. Ambulated with RN assistance in galdamez, remains OOB in chair. No complaints of pain or SOB.
--- NOTE | 2024-10-14 19:00 | PTCARENOTE ---
Patient received from RN @ 1900. Patient sitting in chair comfortably w/ call vaca in reach. AOx4. Sinus tachycardia BP 111/97 HR 108. Heart sounds audible. Radial and pedal pulses present bilaterally. No edema noted. POX 95% RA. Lungs clear
bilaterally and diminished in basses.. Bowel sounds normoactive. Voiding clear yellow urine in urinal. Right radial cath sight approximated and OPERATIONS ASSISTANT. RIIsabel trujillo w/ tinyan @58. PAP 45/26 CVP 3. Milrinone infusing @ 0.25.
--- NOTE | 2024-10-14 19:20 | PTCARENOTE ---
Patient received from RN @1900. Patient sitting in chair comfortably w/ call vaca in reach. AOx4 w/ flat affect. Sinus tachycardia BP 96/59 HR 117. Heart sounds audible. Radial and pedal pulses present but weak. Generalized trace anasarca
noted. POX 98% RA. Lungs clear but diminished in the bases. CTx4. 2x mediastinal chest tubes and R/L pleural set to -20 wall suction draining serosanguineous fluid WNL. No crepitus, tidaling, or air leaks noted. Due to void @ 1930. Bowel
sounds hypoactive. Sternal dressing dry and intact. Right groin puncture approximated EFRA. Right leg incision approximated RESPITE PROVIDER. RIJ cordis w/ slick patent and intact. Left Radial A-line leveled and zeroed. Insulin infusing per glycemic
protocol.
--- NOTE | 2024-10-14 21:05 | PTCARENOTE ---
Bladder scan for 167mL. A-Line and [place] removed per CT EVER Jimenez
[2024-10-14] MEDS: ATIVAN 0.5 MG PO (23:14)
[2024-10-15] VITALS (25 sets, daily range): BP systolic 92–115; BP diastolic 65–90; BMI 25.8
--- NOTE | 2024-10-15 00:38 | PTCARENOTE ---
Assessment unchanged. Patient sleeping comfortably in bed w/ call vaca in reach. NSR. VSS.
--- NOTE | 2024-10-15 05:00 | PTCARENOTE ---
Patient assessment unchanged. Labs drawn. Sinus Tachy.
[2024-10-15 05:17] LABS: Hematocrit 49.3 % (39.0-52.0); Hemoglobin 17.3 g/dL (13.0-18.0); Mean Corp Hgb Conc. 35.1 g/dL (33.0-37.0); Mean Corpuscular Hgb 33.5 pg (27.0-31.0); Mean Corpuscular Volume 95.4 fL (80.0-94.0); Mean Platelet Volume 12.8 fL (7.4-10.4); Platelet Count 158 10^3/uL (130-400); Red Blood Cell Count 5.17 10^6/uL (4.70-6.10); Red Cell Dist. Width 12.6 % (11.5-14.5)
[2024-10-15 05:47] LABS: Lactic Acid 0.9 mmol/L (0.7-2.0)
[2024-10-15 05:52] LABS: ALT (SGPT) 110 U/L (0-50); AST (SGOT) 49 U/L (17-59); Albumin 3.6 g/dl (3.5-5.0); Alkaline Phosphatase 65 U/L (38-126); Blood Urea Nitrogen 30 mg/dl (9-20); Carbon Dioxide 32 mmol/L (22-30); Chloride 94 mmol/L (98-107); Direct Bilirubin 0.3 mg/dl (0.0-0.4); Estimated Creatinine Clearance 70 ml/min; Glucose 92 mg/dl (70-99); Potassium 3.7 mmol/L (3.5-5.1); Sodium 134 mmol/L (135-145); Total Bilirubin 1.4 mg/dl (0.2-1.3); Total Protein 5.5 g/dl (6.3-8.2); eGFR 58.62
[2024-10-15] MEDS: PRIMACOR 20 MG 100 IV ×3 (06:14→21:45)
--- NOTE | 2024-10-15 07:30 | W.PN.CD ---
Today's Communication / Plan
-
Increase milrinone to 0.375 mcg/kg/min.
Increase bumetanide 1 mg IV BID.
Goal CI 2.2, PAd 18 mmHg, SVR ~ 1000.
Impression / Plan
-
Background: 59 y/o male with PAF s/p ablation admitted with progressive SOB/CRAIG responsive to diuresis and an elevated troponin concerning for HF + NSTEMI.
#HFrEF/Cardiogenic shock
-Acute, this is a threat to life.
-Pt education provided.
-[place] showed evidence of cardiogenic shock prompting initiation of milrinone and bumetanide gtt. This has resulted in a massive diuresis and improvement in his PAd (now 17 mmHg) and CI (2.0 L/min/m2).
-Increase milrinone to 0.375 mcg/kg/min.
-Start bumetanide 1 mg IV BID.
-Goal PAd to 18 mmHg, CI 2.2, SVR of 1000.
-Keep K > 4, Mg > 2, Ca > 8, PO4 > 2.5.
-LFT's, lactate have or are normalizing.
-Plan to transition to lisinopril vs. losartan vs. sacubitril/valsartan or hydralazine/isosorbide mononitrate if renal function will not tolerate.
-As he compensates, we will plan to wean off of milrinone, start beta roman and transition diuretics to PO.
#Nonischemic dilated cardiomyopathy
-New diagnosis.
-Biventricular systolic dilation and dysfunction on echo with stage III diastolic dysfunction.
-Etiology uncertain, but high likelihood of EtOH (previously under-appreciated alcohol intake). DDx includes post-viral, genetic, myocarditis, etc.
-We will continue to apply GDMT when his hemodynamics will tolerate.
-We have counselled him on absolute alcohol abstinence.
#CAD
-New diagnosis.
-Single vessel, 60% mLAD.
-Start aspirin 81 mg daily.
-High dose, high potency statin.
#MAEVE
-Acute.
-DDx includes cardiorenal as well as ZENAIDA (CTA PE protocol and also IV contrast for coronary angiography).
-Improving with diuresis - more likely cardiorenal.
#Hx PAF
-Currently in NSR/sinus tachycardia.
-Rate/rhythm control - s/p ablation 07/2019, LA pressure was 1 mmHg at that procedure.
-Not currently tolerating any rate control (probably needed to maintain CO/CI).
-If rate control were needed, would favor digoxin or amiodarone.
-CHADS2-Vasc = 2 (CHF, vascular disease).
-Not previously on anticoagulation post ablation. We may need to re-assess his AF burden as an outpatient.
#Polycythemia
-Not a smoker.
-Normal ferritin.
Critical Care Time = 33 minutes.
Subjective/Interval History:
Bumetanide gtt discontinued yesterday after robust diuresis.
Weight up 0.6 kg from yesterday.
PAd back in the 20's.
CI = 1.7-2.2.
SVR ~ 1500.
Creatinine down to 1.4.
DATA:
Transthoracic Echocardiogram, 10/11/2024:
CONCLUSIONS
Dilated left and right ventricles. Severely reduced left ventricular function.
LVEF is 12% by crain's method of discs.
Akinesis of the basal lateral, anterior and inferior grimm with severe
hypokineis of the mid to distal inferior, lateral and mid anterior wall. The
septal wall is best preserved.
Right ventricular systolic function.
Stage III diastolic dysfunction suggestive of restrictive filling pattern and
increased filling pressures.
Moderate mitral regurgitation.
No prior study available for comparison.
Cardiac Catheterization/Coronary angiography, 10/11/2024:
1. Left dominant circulation with a nonocclusive 60% lesion in the mid LAD (PD/PA = 0.90).
2. Severely elevated filling pressures (LVEDP = 37 mmHg at 98.4 kg).
3. Severe cardiomyopathy (LVEF = 12% on echocardiogram) with severe pulse pressure narrowing.
Right Heart Catheterization, 10/13/2024:
CONCLUSION:
1. Severely elevated filling pressures (PCWP = 42 mmHg at 98.0 kg).
2. Severely depressed cardiac function (CI = 1.04 L/min/m� by Latosha, 1.12 L/min/m� by Thermo), consistent with cardiogenic shock.
3. 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
Physical Exam
Vital Signs/Labs
Vital Signs
Temp Pulse Resp BP Pulse Ox
36.7 C 100 16 114/89 92
10/15/24 06:15 10/15/24 06:00 10/15/24 06:15 10/15/24 06:00 10/15/24 06:15
10/13/24 10/14/24 10/15/24
11:59 11:59 11:59
Actual Weight 98.4 kg 92.9 kg 93.5 kg
10/15/24 04:47
10/15/24 04:47
PT 16.0 Sec (11.4-14.6) H 10/08/24 22:25
INR 1.25 10/08/24 22:25
APTT Cancelled 10/11/24 16:10
Magnesium 1.7 mg/dl (1.6-2.3) 10/14/24 04:30
Triglycerides 80 mg/dl (10-149) 10/09/24 06:12
LDL Cholesterol, Calc 77 mg/dl 10/09/24 06:12
VLDL Cholesterol, Calc 16 mg/dl (0-30) 10/09/24 06:12
HDL Cholesterol 41 mg/dl 10/09/24 06:12
10/08/24
22:25
Yap-[id number] Pept 3150
Physical Exam
Constitutional: No acute distress and Comfortable
EENT: Anicteric and Moist mucous membranes
Cardiovascular: Rhythm & rate is regular, Pedal edema is absent, JVD pressure is normal, S1S2 is normal and Murmur/rub/gallop absent
Respiratory: Respiratory effort normal, Lungs clear to auscul., Wheeze Absent, Crackles Absent and Rhonchi Absent
GI: Soft, Distention absent, Flat, Non tender and Normal bowel sounds
Neuro/Psych: AO x 3
Data Reviewed
-
Date of Service: October 15, 2024
Medical Decision Making: Reviewed Test Results, Independent Historian Assessment and Test Interpretation
EKG: Tracing Personally Visualized and interpreted and Report Reviewed by me
Echo: Tracing Personally Visualized and interpreted and Report Reviewed by me
X-Ray/CT/US/MRI/NUC/PET: Image Personally Visualized and interpreted and Report Reviewed by me
Medical Tests (PFT, Pathology etc): Image Personally Visualized and interpreted, Report Reviewed by me, Discussed with Physician, Discussed with Patient and Discussed with Family
Labs: Labs Reviewed by me
Old Records: Reviewed
[2024-10-15 07:32] LABS: Magnesium 2.2 mg/dl (1.6-2.3)
--- NOTE | 2024-10-15 08:22 | W.PN.NEPH.PH ---
Today's Communication / Plan
-
Bumex switched to oral administration by cardiology
Creatinine down to 1.4 in setting of cardiorenal
We will sign off
Assessment/Plan
-
59y M with PMH significant for A-Fib s/p ablation who presents to ED complaining of SOB. Patient states that he has felt progressively more SOB for the past several days. Had a 13 pound weight gain in about 4 days.
Status post cardiac catheterization 10/11/2024 showed left dominant circulation with a nonocclusive 60% lesion in the mid LAD (PD/PA = 0.90), Severely elevated filling pressures (LVEDP = 37 mmHg at 98.4 kg, Severe cardiomyopathy (LVEF = 12% on
echocardiogram) with severe pulse pressure narrowing.
Was diuresed and developed acute kidney injury with a creatinine of 2.1 up from 1.3.
Periods of hypotension/IV contrast 10/09 with normal renal function at that time
Impression.
Acute kidney injury.= no obstructive uropathy on ultrasound/suspect this is cardiorenal
Nonischemic cardiomyopathy. Ejection fraction 12%.= Suspect alcohol etiology
Previous atrial fibrillation status post ablation
Plan.
Creatinine approaching baseline of 1.4
Hold Entresto/avoid SGLT2 inhibitor at this time
right heart cath significant elevated pressure
On milrinone and Bumex drip
8 L negative since starting inotrope and diuretic
Discontinue Bumex gtt now on oral bumex per cardiology
Creatinine stable 1.4
we will sign off
-
-
Date of Service: October 15, 2024
CC / HPI / ROS
-
Chief Complaint:
Shortness of breath weight gain
History of Present Illness:
acute kidney injury secondary to cardiorenal nonischemic cardiomyopathy
Creatinine down to 1.4
Hemodynamically labile on milrinone
Review of Systems:
Weights down
No chest pain
No shortness of breath
Nonoliguric
Labs
-
Labs:
WBC 8.0 10^3/uL (4.8-10.8) 10/15/24 04:47
RBC 5.17 10^6/uL (4.70-6.10) 10/15/24 04:47
Hgb 17.3 g/dL (13.0-18.0) 10/15/24 04:47
Hct 49.3 % (39.0-52.0) 10/15/24 04:47
Plt Count 158 10^3/uL (130-400) 10/15/24 04:47
Sodium 134 mmol/L (135-145) L 10/15/24 04:47
Potassium 3.7 mmol/L (3.5-5.1) 10/15/24 04:47
Chloride 94 mmol/L (98-107) L 10/15/24 04:47
Carbon Dioxide 32 mmol/L (22-30) H 10/15/24 04:47
BUN 30 mg/dl (9-20) H 10/15/24 04:47
Creatinine 1.4 mg/dL (0.7-1.3) H 10/15/24 04:47
eGFR 58.62 10/15/24 04:47
Glucose 92 mg/dl (70-99) 10/15/24 04:47
Calcium 9.0 mg/dl (8.4-10.2) 10/15/24 04:47
Phosphorus 4.1 mg/dl (2.5-4.5) 10/13/24 20:07
Vtq-Q-Raojlshvuos Pept 3150 pg/ml 10/08/24 22:25
Albumin 3.6 g/dl (3.5-5.0) 10/15/24 04:47
Physical Exam
-
Vital Signs:
Vital Signs
Temp Pulse Resp BP Pulse Ox
98.1 F 100 16 114/89 92
10/15/24 06:15 10/15/24 06:00 10/15/24 06:15 10/15/24 06:00 10/15/24 06:15
Cardiovascular:: Regular rate and rhythm
Respiratory:: Bilateral: Coarse
Lung Excursion:: Normal
Abdomen:: Nontender
Bowel Sounds:: Normal
Extremity Edema:: None: Bilateral:
Malagon Catheter: No
--- NOTE | 2024-10-15 08:30 | PTCARENOTE ---
pt received from previous RN, oriented, in bed. SR/ST on the monitor, HR 90s-100s. palpable pulses. PAP 30-40s/10-20s. CVP ~2-6. CI 1.7-2.3. pt on milrinone gtt as ordered. POX 88-89% on RA in bed sleeping, pt placed on 2LNC, POX 94%. OOB in chair
on RA, POX 94-97%. lungs clear, diminished in bases. pt abdomen s/n, denies n/v. diet tolerated well. voids. OOB to chair w/ min assist. R radial site c/d/i. RIIsabel trujillo/cornelio maintained. PIV. see worklist for VS, I&O, and assessment.
[2024-10-15] MEDS: LOW STRENGTH ASPIRIN 81 MG PO (09:04)
[2024-10-15] MEDS: FARXIGA 10 MG PO (09:04)
[2024-10-15] MEDS: HEPARIN 5000 UNITS SC ×2 (09:04→19:49)
[2024-10-15] MEDS: TYLENOL 650 MG PO (09:04)
[2024-10-15] MEDS: KCL 40 MEQ PO (09:52)
[2024-10-15] MEDS: BUMEX 1 MG IV ×2 (09:53→19:49)
--- NOTE | 2024-10-15 10:26 | CM ---
Chart reviewed. Patient OOB sitting in the chair. Patient is independent of ADLS, lives with his SO in a [address], 16 BETSEY, 0 DME. Plan will be to go to [facility] if patient doesn't respond to treatment. CM to follow
[2024-10-15] MEDS: MIRALAX 17 GRAMS PO (11:39)
--- NOTE | 2024-10-15 12:00 | PTCARENOTE ---
pt VSS, OOB in chair. Tylenol given for headache w/ relief. shampoo cap applied. voids in urinal.
--- NOTE | 2024-10-15 16:15 | PTCARENOTE ---
pt VSS. voiding in urinal. no c/o SOB. pt ambulated in hallway w/ stand by assist. placed back to bed to rest.
--- NOTE | 2024-10-15 16:57 | W.PN.HOSP.TC ---
Today's Communication/Plan
-
timing of repeat Echo
remains on Milrinone infusion
Assessment / Plan
Assessment / Plan
59 yo M with PMH significant for A-Fib s/p ablation who presented to ED complaining of several days of SOB, admitted for new heart failure exacerbation.
Chest CT
No CTA evidence for an acute pulmonary thromboembolism.
Cardiomegaly with reflux of contrast from the right atrium into the IVC and hepatic veins indicating a degree of right heart failure.
Small patchy opacity in the left lower lobe costophrenic sulcus, likely atelectasis or mild pneumonitis.
Mild mediastinal and bilateral hilar lymphadenopathy, nonspecific.
Abdomen/Pelvis CT
Bilateral perinephric fat stranding, nonspecific but could be secondary to an ascending urinary tract infection. Recommend correlation with a urinalysis. No CT evidence for hydronephrosis or nephroureterolithiasis.
Gallbladder wall thickening with minor fat stranding.
Abdominal US
Diffuse gallbladder wall thickening measuring up to 7 mm in thickness. No evidence for cholelithiasis. Secondary gallbladder wall thickening from congestive heart failure would be a consideration given the CT chest findings. Acalculus cholecystitis
is probably less likely but clinical correlation is recommended. Negative sonographic 's sign.
No bile duct dilatation.
A/P:
# Acute systolic HF
# Troponin Elevation likely due to CHF
Echo this admission 10/11: Dilated left and right ventricles. Severely reduced left ventricular function. LVEF is 12%. Akinesis of the basal lateral, anterior and inferior grimm with severe hypokinesis of the mid to distal inferior, lateral and mid
anterior wall. Stage III diastolic dysfunction suggestive of restrictive filling pattern and increased filling pressures. Moderate mitral regurgitation.
IV Lasix 40mg daily on hold
s/p cardiac cath 10/11: Left dominant circulation with a nonocclusive 60% lesion in the mid LAD
GDMT per card
Wt 10/08 101.2-->10/13 98.4-->10/15 93.5kg
BP 106/74
# MAEVE, cardiorenal syndrome
SCr peaked at 2.1 -> 1.7 today; Most recent baseline was 0.9 (2019).
10/15 BUN/Creat 30/1.4
Patient notes that he takes creatine supplement for work-outs. Outpatient records report testosterone supplementation as well.
Holding Entresto and Lasix
s/p RHC 10/13, noted significant increase in wedge pressure (PCWP = 42 mmHg)
Initiated milrinone drip and bumetanide drip at 1 mg/h.
Card on board, Renal now signed off, input appreciated
await follow up echocardiogram timing
# Bilateral perinephric stranding seen on CT - UA without evidence of infection; patient without flank pain
# Abnormal LFTs, suspect related to acute CHF
# Diarrhea, resolved, now constipated. Will start Colace and prn MOM
LFT abnormality seems likely due to hepatic congestion / R CHF.
CT with mild gallbladder wall thickening; seen on US; no evidence of cholelithiasis.
He denies to abd symptoms
Cont to monitor LFT
# Polycythemia, Chronic / essentially unchanged x years.
Seems likely due to testosterone supplementation.
ASA daily for now.
Informed pt about outpt heme eval
# constipation
one of main symptoms is bloating in setting of fluid, but now reports constipation may be confusing picture
Cont miralax and Dulcolax PRN
# Indigestion/ abdominal bloating, likely 2/2 acute CHF
Cont trial of Maalox PRN, Zofran PRN
DVT Prophylaxis: HSQ
Code Status: Full
Anticipated Discharge: > 48 hours
Subjective/Interval History
-
Date of Service: October 15, 2024
Feels better than at time of admission
Objective Data
-
Labs:
Laboratory Results
10/15/24
04:47
WBC 8.0
Hgb 17.3
Hct 49.3
Plt Count 158
Sodium 134 L
Potassium 3.7
Chloride 94 L
Carbon Dioxide 32 H
BUN 30 H
Creatinine 1.4 H
Glucose 92
Calcium 9.0
Total Bilirubin 1.4 H
AST 49
ALT 110 H
Alkaline Phosphatase 65
Vital Signs:
Vital Signs
Temp Pulse Resp BP Pulse Ox
98.5 F 105 18 106/74 95
10/15/24 14:00 10/15/24 14:30 10/15/24 14:00 10/15/24 14:00 10/15/24 13:30
I&O
10/14/24 10/15/24 10/16/24
06:59 06:59 06:59
Intake Total 1481.0 / 1492.4 373.0 / 380.4 640.3 / 640.3
Output Total 9625 / 9625 207 / 2075 1125 / 1125
Balance -8144.0 / -8132.6 -1702.0 / -1694.6 -484.7 / -484.7
Review of Systems
-
History Source: Patient and Other (2 friends in room, pt gave permission to discuss in front of them)
Constitutional: Denies Fever
EENT: Reports No Symptoms Reported
Respiratory: Reports No Symptoms; Denies Trouble Breathing (much improved)
Abdomen/GI: Reports Constipated
Physical Exam
-
General: Well Developed, Well Nourished and No Apparent Distress
HEENT: Normocephalic and Atraumatic
Respiratory: Clear to Auscultation; Negative Wheezes, Rales or Rhonchi
Cardiac: Regular Rhythm and S1/S2
GI: Soft, Nontender and Nondistended
Musculoskeletal: No Clubbing, No Cyanosis and No Edema
--- NOTE | 2024-10-15 18:04 | PTCARENOTE ---
CI 1.49/SVR 1769, milrinone gtt titrated as ordered. RIJ cordis/swan dressing changed. 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
--- NOTE | 2024-10-15 19:45 | PTCARENOTE ---
Patient received from RN @1900. Patient sitting comfortably in bed w/ call vaca in reach. Sinus Tachycardia BP 105/81 HR 108. Heart sounds audible. No edema noted. Radial and pedal pulses present to palpation. Lungs clear bilaterally. POX 94%
RA. Voiding clear yellow urine. Bowel sounds normoactive. Right radial sight EFRA w/ no drainage. RIJ cordis w/ swan @58 PAP 22/06 Left PIV patent and intact.
[2024-10-15] MEDS: COLACE 100 MG PO (19:46)
--- NOTE | 2024-10-15 20:30 | PTCARENOTE ---
CI 1.65 CT PA Ed notified. CT PA Ed said wait till 2200 and get another CI and reassess to titrate milrinone.
[2024-10-15 21:14] LABS: Blood Urea Nitrogen 31 mg/dl (9-20); Calcium 9.3 mg/dl (8.4-10.2); Carbon Dioxide 35 mmol/L (22-30); Chloride 92 mmol/L (98-107); Estimated Creatinine Clearance 65 ml/min; Glucose 116 mg/dl (70-99); Magnesium 2.2 mg/dl (1.6-2.3); Potassium 4.3 mmol/L (3.5-5.1); Sodium 134 mmol/L (135-145); eGFR 53.96
--- NOTE | 2024-10-15 22:30 | PTCARENOTE ---
CI 1.59 CT PA Ed notified. Confirmed order to titrate Milrinone per protocol. See Worklist for details.
[2024-10-15] MEDS: ATIVAN 0.5 MG PO (22:35)
[2024-10-16] VITALS (19 sets, daily range): BP systolic 85–131; BP diastolic 60–101; BMI 25.9
--- NOTE | 2024-10-16 00:23 | PTCARENOTE ---
BP 85/61. CT PA Ed notified. CI 2.34 SVR 1007.
[2024-10-16 03:01] LABS: Hemoglobin 16.5 g/dL (13.0-18.0); Mean Corp Hgb Conc. 35.9 g/dL (33.0-37.0); Mean Corpuscular Volume 94.7 fL (80.0-94.0); Mean Platelet Volume 12.2 fL (7.4-10.4); Platelet Count 166 10^3/uL (130-400); Red Blood Cell Count 4.86 10^6/uL (4.70-6.10); Red Cell Dist. Width 12.6 % (11.5-14.5); White Blood Cell Count 7.5 10^3/uL (4.8-10.8)
[2024-10-16 03:23] LABS: ALT (SGPT) 85 U/L (0-50); AST (SGOT) 37 U/L (17-59); Albumin 3.1 g/dl (3.5-5.0); Alkaline Phosphatase 54 U/L (38-126); Blood Urea Nitrogen 28 mg/dl (9-20); Carbon Dioxide 35 mmol/L (22-30); Chloride 94 mmol/L (98-107); Direct Bilirubin 0.2 mg/dl (0.0-0.4); Estimated Creatinine Clearance 75 ml/min; Glucose 100 mg/dl (70-99); Magnesium 2.1 mg/dl (1.6-2.3); Sodium 135 mmol/L (135-145); Total Bilirubin 1.3 mg/dl (0.2-1.3); Total Protein 5.1 g/dl (6.3-8.2); eGFR > 60.00
[2024-10-16] MEDS: PRIMACOR 20 MG 100 IV ×3 (03:40→13:20)
[2024-10-16] MEDS: TYLENOL 650 MG PO (04:50)
--- NOTE | 2024-10-16 05:18 | PTCARENOTE ---
CI 2/SVR 1483. CT PA Ed notified. Ordered to hold [employer] @ 0.625
--- NOTE | 2024-10-16 08:00 | PTCARENOTE ---
Patient received from shift engineer RN; AAOx3, responds spontaneously to RN and follows commands; Anxious; VSS; SR with ST on monitor; Trace B/L LE edema; +2 DP and Radial pulses; Lungs sounds clear; SpO2 93-97%; Patient complaining of constipation -
PRN PO Dulcolax given accordingly; Urinating clear, yellow urine; Right radial puncture site [employer]; PIV x1 - #20 LAC; RIJ Cordis with [place]-eloisa floated to 58 cm - lines zeroed and level; Milrinone drip infusing - see nursing flowsheets for further
details; See nursing documentaiton for further information
[2024-10-16] MEDS: LOW STRENGTH ASPIRIN 81 MG PO (08:21)
[2024-10-16] MEDS: DULCOLAX 10 MG PO (08:21)
[2024-10-16] MEDS: FARXIGA 10 MG PO (08:21)
[2024-10-16] MEDS: COLACE 100 MG PO (08:22)
[2024-10-16] MEDS: KCL 40 MEQ PO (08:22)
[2024-10-16] MEDS: HEPARIN 5000 UNITS SC (08:22)
[2024-10-16] MEDS: BUMEX IV (08:28)
[2024-10-16] MEDS: BUMEX 50 IV (08:42)
--- NOTE | 2024-10-16 09:57 | W.PN.CD ---
Today's Communication / Plan
-
Bumex gtt
Cont milrinone
Transfer to [place]
Impression / Plan
-
Background: 59 y/o male with PAF s/p ablation admitted with progressive SOB/CRAIG responsive to diuresis and an elevated troponin concerning for HF + NSTEMI.
#HFrEF/Cardiogenic shock
-Acute, this is a threat to life.
-Pt education provided.
-[place]-Jonelle showed evidence of cardiogenic shock prompting initiation of milrinone and bumetanide gtt. This has resulted in a massive diuresis and improvement in his PAd (now 25 mmHg) and CI (2.0-2.2 L/min/m2).
-Increase milrinone to 0.375 mcg/kg/min.
-Weight is up, putting back on bumex gtt 0.5 mg
-Goal PAd to 18 mmHg, CI 2.2, SVR of 1000.
-Keep K > 4, Mg > 2, Ca > 8, PO4 > 2.5.
-LFT's, lactate have or are normalizing.
-Unfortunately, likely milrinone dependent at this point, discussed w/ Dr Rodriguez and agree to send to [place]
#Nonischemic dilated cardiomyopathy
-New diagnosis.
-Biventricular systolic dilation and dysfunction on echo with stage III diastolic dysfunction.
-Etiology uncertain, but high likelihood of EtOH (previously under-appreciated alcohol intake). DDx includes post-viral, genetic, myocarditis, etc.
-We will continue to apply GDMT when his hemodynamics will tolerate.
-We have counselled him on absolute alcohol abstinence.
#CAD
-New diagnosis.
-Single vessel, 60% mLAD.
-Start aspirin 81 mg daily.
-High dose, high potency statin.
#MAEVE
-Near normal at 1.3 today
-DDx includes cardiorenal as well as ZENAIDA (CTA PE protocol and also IV contrast for coronary angiography).
-Improving with diuresis - more likely cardiorenal.
#Hx PAF
-Currently in NSR/sinus tachycardia.
-Rate/rhythm control - s/p ablation 07/2019, LA pressure was 1 mmHg at that procedure.
-Not currently tolerating any rate control (probably needed to maintain CO/CI).
-If rate control were needed, would favor digoxin or amiodarone.
-CHADS2-Vasc = 2 (CHF, vascular disease).
-Not previously on anticoagulation post ablation. We may need to re-assess his AF burden as an outpatient.
#Polycythemia
-Not a smoker.
-Normal ferritin.
Critical Care Time = 48 minutes.
Subjective/Interval History:
WEight is up; restart bumex gtt at 0.5
PAd back in the 20's.
CI = 2.0-2.2.
SVR ~ 1100.
Creatinine down to 1.3.
DATA:
Transthoracic Echocardiogram, 10/11/2024:
CONCLUSIONS
Dilated left and right ventricles. Severely reduced left ventricular function.
LVEF is 12% by crain's method of discs.
Akinesis of the basal lateral, anterior and inferior grimm with severe
hypokineis of the mid to distal inferior, lateral and mid anterior wall. The
septal wall is best preserved.
Right ventricular systolic function.
Stage III diastolic dysfunction suggestive of restrictive filling pattern and
increased filling pressures.
Moderate mitral regurgitation.
No prior study available for comparison.
Cardiac Catheterization/Coronary angiography, 10/11/2024:
1. Left dominant circulation with a nonocclusive 60% lesion in the mid LAD (PD/PA = 0.90).
2. Severely elevated filling pressures (LVEDP = 37 mmHg at 98.4 kg).
3. Severe cardiomyopathy (LVEF = 12% on echocardiogram) with severe pulse pressure narrowing.
Right Heart Catheterization, 10/13/2024:
CONCLUSION:
1. Severely elevated filling pressures (PCWP = 42 mmHg at 98.0 kg).
2. Severely depressed cardiac function (CI = 1.04 L/min/m� by Latosha, 1.12 L/min/m� by Thermo), consistent with cardiogenic shock.
3. 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
Physical Exam
Vital Signs/Labs
Vital Signs
Temp Pulse Resp BP Pulse Ox
97.7 F 92 16 97/72 94
10/16/24 07:59 10/16/24 08:08 10/16/24 07:59 10/16/24 08:00 10/16/24 08:08
10/15/24 10/16/24 10/17/24
06:59 06:59 06:59
Actual Weight 206 lb 2.115 oz 207 lb 0.225 oz
10/16/24 02:34
10/16/24 02:34
PT 16.0 Sec (11.4-14.6) H 10/08/24 22:25
INR 1.25 10/08/24 22:25
APTT Cancelled 10/11/24 16:10
Magnesium 2.1 mg/dl (1.6-2.3) 10/16/24 02:34
Triglycerides 80 mg/dl (10-149) 10/09/24 06:12
LDL Cholesterol, Calc 77 mg/dl 10/09/24 06:12
VLDL Cholesterol, Calc 16 mg/dl (0-30) 10/09/24 06:12
HDL Cholesterol 41 mg/dl 10/09/24 06:12
10/08/24
22:25
Xgo-M-Cpwbnwitotx Pept 3150
Physical Exam
Constitutional: No acute distress and Comfortable
EENT: Anicteric
Cardiovascular: Rhythm & rate is regular and Pedal edema is absent
Respiratory: Respiratory effort normal and Lungs clear to auscul.
GI: Soft
Neuro/Psych: AO x 3
Data Reviewed
-
Date of Service: October 16, 2024
Medical Decision Making: Reviewed Test Results
EKG: Tracing Personally Visualized and interpreted (sr)
Echo: Tracing Personally Visualized and interpreted and Report Reviewed by me
Labs: Labs Reviewed by me
Critical Care Time (in minutes): 48
--- NOTE | 2024-10-16 12:15 | PTCARENOTE ---
CI <2.2; Milrinone infusion increased per protocol; MD Rogers notified due to Milrinone being at maximum dose - no further orders at this time and continue infusion at current dose.
CO: 3.97
CI: 1.75
SVR: 1,994
--- NOTE | 2024-10-16 16:34 | PTCARENOTE ---
Report given to Linette RN, phone #[phone] used to give report - no further questions at this time; Bumex and milrinone infusing; Patient belongings with patient and family; CI improved after milrinone infusion increase from earlier
CO: 4.93
CI: 2.17
SVR: 1,249
--- NOTE | 2024-10-16 17:32 | W.PN.HOSP.TC ---
Addendum entered and electronically signed by Bonilla Maurice MD 10/16/24 18:04:
Just notified that bed has become available and pt in process of being transferred to [place]
Original Note:
Today's Communication/Plan
-
transfer to [place] when bed available
Assessment / Plan
Assessment / Plan
59 yo M with PMH significant for A-Fib s/p ablation who presented to ED complaining of several days of SOB, admitted for new heart failure exacerbation.
Chest CT
No CTA evidence for an acute pulmonary thromboembolism.
Cardiomegaly with reflux of contrast from the right atrium into the IVC and hepatic veins indicating a degree of right heart failure.
Small patchy opacity in the left lower lobe costophrenic sulcus, likely atelectasis or mild pneumonitis.
Mild mediastinal and bilateral hilar lymphadenopathy, nonspecific.
Abdomen/Pelvis CT
Bilateral perinephric fat stranding, nonspecific but could be secondary to an ascending urinary tract infection. Recommend correlation with a urinalysis. No CT evidence for hydronephrosis or nephroureterolithiasis.
Gallbladder wall thickening with minor fat stranding.
Abdominal US
Diffuse gallbladder wall thickening measuring up to 7 mm in thickness. No evidence for cholelithiasis. Secondary gallbladder wall thickening from congestive heart failure would be a consideration given the CT chest findings. Acalculus cholecystitis
is probably less likely but clinical correlation is recommended. Negative sonographic 's sign.
No bile duct dilatation.
A/P:
# Acute systolic HF
# Troponin Elevation likely due to CHF
Echo this admission 10/11: Dilated left and right ventricles. Severely reduced left ventricular function. LVEF is 12%. Akinesis of the basal lateral, anterior and inferior grimm with severe hypokinesis of the mid to distal inferior, lateral and mid
anterior wall. Stage III diastolic dysfunction suggestive of restrictive filling pattern and increased filling pressures. Moderate mitral regurgitation.
IV Lasix 40mg daily on hold
s/p cardiac cath 10/11: Left dominant circulation with a nonocclusive 60% lesion in the mid LAD
GDMT per card
Wt 10/08 101.2-->10/13 98.4-->10/15 93.5-->10/16 93.9kg
BP 106/74
Etio of acute process unclear. Possibly multifactorial, Etoh (though exact quantity he drinks is uncertain, he states generally 3-4 x per week, 1-2 each day, but uncertain of accuracy). He did have Covid, then the flu within past 4 months
# MAEVE, cardiorenal syndrome
SCr peaked at 2.1 -> 1.7 today; Most recent baseline was 0.9 (2019).
10/15 BUN/Creat 30/1.4
Patient notes that he takes creatine supplement for work-outs. Outpatient records report testosterone supplementation as well.
Holding Entresto and Lasix
s/p RHC 10/13, noted significant increase in wedge pressure (PCWP = 42 mmHg)
Initiated milrinone drip and bumetanide drip at 1 mg/h.
Card on board, Renal now signed off, input appreciated
await follow up echocardiogram timing
# Bilateral perinephric stranding seen on CT - UA without evidence of infection; patient without flank pain
# Abnormal LFTs, suspect related to acute CHF
# Diarrhea, resolved, now constipated. Will start Colace and prn MOM
LFT abnormality seems likely due to hepatic congestion / R CHF.
CT with mild gallbladder wall thickening; seen on US; no evidence of cholelithiasis.
He denies to abd symptoms
Cont to monitor LFT
# Polycythemia, Chronic / essentially unchanged x years.
Seems likely due to testosterone supplementation.
ASA daily for now.
Informed pt about outpt heme eval
# constipation
one of main symptoms is bloating in setting of fluid, but now reports constipation may be confusing picture
Cont miralax and Dulcolax PRN
# Indigestion/ abdominal bloating, likely 2/2 acute CHF
Cont trial of Maalox PRN, Zofran PRN
reviewed with Dr. Rogers, he requests transfer to [place], accepting physician will be Dr. Adriana Corona. Completed transfer forms and contacted [facility]
DVT Prophylaxis: HSQ
Code Status: Full
time 65 minutes
Anticipated Discharge: Within 24 hours
Subjective/Interval History
-
Date of Service: October 16, 2024
Awake, alert, conversant
Objective Data
-
Vital Signs:
Vital Signs
Temp Pulse Resp BP Pulse Ox
99.1 F 108 16 111/78 94
10/16/24 16:00 10/16/24 16:15 10/16/24 16:00 10/16/24 16:00 10/16/24 16:00
I&O
10/15/24 10/16/24 10/17/24
06:59 06:59 06:59
Intake Total 373.0 / 380.4 1445.6 / 1474.1 905.9 / 905.9
Output Total 5 / 2074 3300 / 3300 2425 / 2425
Balance -1702.0 / -1694.6 -1854.4 / -1825.9 -1519.1 / -1519.1
Review of Systems
-
History Source: Patient and Family (sig other, Ale in room along with her son and a close friend)
Constitutional: Denies Fever
EENT: Reports No Symptoms Reported
Respiratory: Reports No Symptoms; Denies Trouble Breathing (much improved)
Abdomen/GI: Reports Constipated
Neuro: Reports No Symptoms
Physical Exam
-
General: Well Developed, Well Nourished and No Apparent Distress
HEENT: Normocephalic and Atraumatic
Respiratory: Clear to Auscultation; Negative Wheezes, Rales or Rhonchi
Cardiac: Regular Rhythm and S1/S2
GI: Soft, Nontender and Nondistended
Musculoskeletal: No Clubbing, No Cyanosis and No Edema
--- NOTE | 2024-10-16 17:35 | PTCARENOTE ---
Patient left with [facility] ground ambulance crew - report given to Mars LYN; Choco, PIVx1, Milrinone, and Bumex infusions sent with patient; VSS; Linette LYN updated on ETA
--- NOTE | 2024-10-16 18:05 | W.DS.TRANS ---
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
-
Discharge Instructions:
Sleep Apnea Risk Intermediate
Discharge Diagnosis/Procedures Heart failure
Cardiac catheterization
Diet 2 Gram Sodium,Low Cholesterol,Restrict fluids to
48 oz
Driving Restrictions No driving for 24 hours
Specialty Instructions Weigh Daily
Instructions: *CBC Heart Failure Instructions
Stand-Alone Forms: DC Instructions- Cath/EP Lab
Changes to Home Medications: No
Discharge Medications:
DC Medications w/original date entered in [facility]
B Complex 1 tab PO DAILY Supplement 10/08/24
Multi-Vitamins 1 tab PO DAILY Supplement 10/08/24
Vitamin D3 5,000 mg PO DAILY Supplement 10/08/24
creatine monohydrate 7 mg PO DAILY Supplement 10/08/24
Home Medication Changes
none
Pending Results: No
== END 2024-10-16 18:06 | disposition short-term general hospital (02) | DRG 286 ==
LOC: CVICU 05:24
PROVIDERS: Emergency Medicine; Internal Medicine; Internal Medicine Cardiovascular Disease; Nurse Practitioner; Physician Assistant Medical; Student in an Organized Health Care Education/Training Program; ADMITTING PHYSICIAN Hospitalist; ATTENDING PHYSICIAN Internal Medicine; CONSULT PHYSICIAN Internal Medicine Nephrology; CONSULT PHYSICIAN Student in an Organized Health Care Education/Training Program; EMERGENCY PHYSICIAN Emergency Medicine; FAMILY PHYSICIAN Family Medicine
PROC: 4A023N7 Measurement of Cardiac Sampling and Pressure, Left Heart, Percutaneous Approach (ICD-10-PCS; 2024-10-11)
PROC: B2111ZZ Fluoroscopy of Multiple Coronary Arteries using Low Osmolar Contrast (ICD-10-PCS; 2024-10-11)
PROC: 02HP32Z Insertion of Monitoring Device into Pulmonary Trunk, Percutaneous Approach (ICD-10-PCS; 2024-10-13)
PROC: 4A023N6 Measurement of Cardiac Sampling and Pressure, Right Heart, Percutaneous Approach (ICD-10-PCS; 2024-10-13)
DX: I13.0 Hypertensive heart and chronic kidney disease with heart failure and stage 1 through stage 4 chronic kidney disease, or unspecified chronic kidney disease (principal); I50.21 Acute systolic (congestive) heart failure; R57.0 Cardiogenic shock; N17.9 Acute kidney failure, unspecified; D75.1 Secondary polycythemia; I48.0 Paroxysmal atrial fibrillation; I49.3 Ventricular premature depolarization; I27.29 Other secondary pulmonary hypertension; I5A Non-ischemic myocardial injury (non-traumatic); I42.0 Dilated cardiomyopathy; I25.10 Atherosclerotic heart disease of native coronary artery without angina pectoris; N18.9 Chronic kidney disease, unspecified; K59.00 Constipation, unspecified; Z79.899 Other long term (current) drug therapy; Z82.49 Family history of ischemic heart disease and other diseases of the circulatory system; Z86.16 Personal history of COVID-19; Z87.01 Personal history of pneumonia (recurrent)
CPT/HCPCS: 71046; 71275; 74176; 76700; 80048; 80053; 80061; 80076; 81003; 81015; 82247; 82248; 82570; 82728; 82810; 82962; 83540; 83605; 83735; 83880; 84075; 84100; 84300; 84443; 84450; 84460; 84484; 85025; 85027; 85347; 85379; 85610; 85730; 93005; 93306; 93451; 93458; 93799; 96361; 96374; 99152; 99153; 99285; C1769; C1887; C1894; J2260; Q9967

== ENCOUNTER → 2024-11-09 15:16 | Outpatient (REF) | payer OTHER, SELFPAY | LOC: MRI 15:16 | PROVIDERS: ATTENDING PHYSICIAN Family Medicine Sports Medicine; FAMILY PHYSICIAN Family Medicine | DX: M23.91 Unspecified internal derangement of right knee (principal) | CPT/HCPCS: 73721 ==